=== PATIENT | female | born 1935 | race Caucasian/White ===

== ENCOUNTER 2016-05-02 18:52 | Inpatient (IN) | payer OTHER ==
--- NOTE | 2016-05-02 19:45 | PDOC ---
History of Present Illness - General Chief Complaint: Lightheaded Stated Complaint: LIGHTHEADED/ABD PAIN/SUGAR PROBLEM Time Seen by Provider: 05/02/16 19:12 Past History - Past Medical History Allergies/Adverse Reactions: Allergies Allergy/AdvReac Type Severity Reaction Status Date / Time No Known Allergies Allergy Verified 05/02/16 19:02 Home Medications: Ambulatory Orders Aspirin [Aspirin EC] 81 mg PO DAILY 02/02/16 Benazepril-Hctz 20-25 mg Tab 20 - 25 mg PO DAILY 02/02/16 Glipizide 10 mg PO BID 02/02/16 Lovastatin [Altoprev] 40 mg PO DAILY 02/02/16 Novolin N Vial - 21 units BID 02/02/16 Metformin HCl [Glucophage -] 1,000 mg PO BID@0700,1630 tablet 02/05/16 Cardiac Disorders: Yes Diabetes: Yes (iddm) HTN: Yes Hypercholesterolemia: Yes - Immunization History Immunization Up to Date: Yes - Psycho/Social/Smoking Cessation Hx Anxiety: No Suicidal Ideation: No Smoking History: Never smoked Have you smoked in the past 12 months: No Information on smoking cessation initiated: No Hx Alcohol Use: No Drug/Substance Use Hx: No Substance Use Type: None Hx Substance Use Treatment: No *Physical Exam - Vital Signs Last Vital Signs Temp Pulse Resp BP Pulse Ox 98.4 F 40 L 20 124/46 99 05/02/16 19:02 05/02/16 19:02 05/02/16 19:02 05/02/16 19:02 05/02/16 19:02 ED Treatment Course - LABORATORY CBC & Chemistry Diagram: 05/02/16 19:40 05/02/16 19:40 - RADIOLOGY Radiology Studies Ordered: Category Date Time Status CHEST X-RAY PORTABLE* [RAD] Stat Radiology 05/02/16 19:33 Ordered Medical Decision Making - Medical Decision Making 05/02/16 19:45 Pt has known bradycardia episodes, last time, she syncopized in Jan 2016; pt is A+Ox3 and her sons are at the bedside. Pt is refusing pacemaker placement and states that she refused pacemaker in the past as she is afraid. Pt's research scholar is Dr. Gracia. Pt states that she felt fine until late this afternoon when she developed abdominal pain and dizziness. 05/02/16 20:13 I have paged pt's research scholar, as she is unwilling to have a pacemaker placed and he has been managing her. I have also ordered that external pacer pads be placed on the patient if she decompensates. 05/02/16 20:44 CBC is normal; CXR shows cardiomegaly; chem is pending. Dr. Christian is automobile accessories salesperson and is aware of the patient. He is requesting that we admit the patient to the ICU with external pacemaker pads on. 05/03/16 01:03 Pt remains in the ER as there are no ICU beds. She remains with a HR of 35; external pacer pads are on in case pt decompensates. She is alert and awake and comfortable in the ER. Pt has been under a great deal of stress over the past 4 months with the unexpected of her daughter who has been admitted at another hospital for depression. 05/03/16 02:47 I called the ICU doctor to come and evaluate the patient and he is telling me that there is an empty bed in the ICU and that I should send the patient up. *DC/Admit/Observation/Transfer Diagnosis at time of Disposition: Bradycardia, AV dissociation - Discharge Dispostion Admit: Yes - Referrals Addendum entered and electronically signed by Anay Gilbert SCRIBE 05/03/16 04:48: Physical Exam Vital Sings: Vital Signs Temperature 98.4 F 05/02/16 19:02 Pulse Rate 38 L 05/03/16 03:22 Respiratory Rate 23 05/03/16 03:22 Blood Pressure 101/46 05/03/16 03:22 O2 Sat by Pulse Oximetry (%) 97 05/03/16 03:22 GENERAL: The patient is awake, alert, and fully oriented, in no acute distress. HEAD: Normal with no signs of trauma. EYES: Pupils equal, round and reactive to light, extraocular movements intact, sclera anicteric, conjunctiva clear with no pallor. ENT: Ears normal, nares patent, oropharynx clear without exudates. Moist mucous membranes. NECK: Normal range of motion, supple without lymphadenopathy, JVD, or masses. LUNGS: Breath sounds equal, clear to auscultation bilaterally. No wheeze/ crackles. HEART: +Bradycardic. Normal S1 and S2 without murmur or rub. ABDOMEN: Soft/nontender/nondistended. BS wnl. No guarding or rebound. No palpable masses. No hepatosplenomegaly. EXTREMITIES: +Swollen legs bilaterally, but no pitting edema. Normal range of motion. No clubbing or cyanosis. No cords, erythema, or tenderness. NEUROLOGICAL: Cranial nerves II through XII grossly intact. Normal speech, normal gait. PSYCH: Normal mood, normal affect. SKIN: Warm, Dry, normal turgor, no rashes or lesions noted. Labs: CBC, BMP 05/02/16 19:40 05/02/16 19:40 Addendum entered and electronically signed by Anay Gilbert SCRIBE 05/03/16 04:49: Departure/Admission/Transfer - DischargeDeparture ED Status: Left Department Discharge Diagnosis: Bradycardia, AV dissociation - Transfer to Another Facility Comment:: 05/03/16 04:49 Documentation prepared by Anay Gilbert, acting as certified medical coder for Lori Hays MD. Addendum entered and electronically signed by Anay Gilbert SCRIBE 05/03/16 06:11: History of Present Illness - General Chief Complaint: Lightheaded Stated Complaint: LIGHTHEADED/ABD PAIN/SUGAR PROBLEM Time Seen by Provider: 05/02/16 19:12 History Source: Patient, Family Exam Limitations: No Limitations - History of Present Illness Initial Comments: 05/03/16 06:11 The patient is an 80-year-old female with a significant past medical history of insulin dependent diabetes mellitus, hypertension, hypercholesterolemia, who presents to the emergency department with abdominal pain and dizziness that began late this afternoon. The patient describes the pain as an 8 out of 10. The patient has discussed with her research scholar Dr. Gracia is aware she needs a pacemaker, but is unwilling to have one in place. Allergies: NKDA PCP: Dr. Buzz Yo [address] Reporter: Dr. Vinny Gracia Addendum entered and electronically signed by Anay Gilbert SCRIBE 05/03/16 06:17: Progress Note - Progress Note Progress Note: GENERAL/CONSTITUTIONAL: No fever or chills. No weakness. HEAD, EYES, EARS, NOSE AND THROAT: No change in vision. No ear pain or discharge. No sore throat. CARDIOVASCULAR: No chest pain or shortness of breath. RESPIRATORY: No cough, wheezing, or hemoptysis. GASTROINTESTINAL: +Abdominal pain. No nausea, vomiting, diarrhea or constipation. GENITOURINARY: No dysuria, frequency, or change in urination. MUSCULOSKELETAL: No joint or muscle swelling or pain. No neck or back pain. SKIN: No rash NEUROLOGIC: No headache, vertigo, loss of consciousness, or change in strength/ sensation. ENDOCRINE: No increased thirst. No abnormal weight change. HEMATOLOGIC/LYMPHATIC: No anemia, easy bleeding, or history of blood clots. ALLERGIC/IMMUNOLOGIC: No hives or skin allergy.
[2016-05-02] MEDS ORDERED: ATROPINE SO4 0.4 MG/1 ML VIAL IVPUSH ONE (19:48)
[2016-05-02] MEDS ORDERED: ATROPINE SULFATE 1 MG/10 ML DISP.SYRIN ONE (19:51)
[2016-05-02 20:13] LABS: BASOPHIL 0.9 % (0-2.0); MCH 29.2 pg (25.7-33.7); MCHC 32.5 g/dl (32.0-36.0); MEAN CELL VOLUME 89.8 fl (80-96); MEAN PLT VOLUME 10.2 fl (7.5-11.1); PLATELET COUNT 139 K/MM3 (134-434); RDW 13.3 % (11.6-15.6); WHITE BLOOD COUNT 11.9 K/mm3 (4.0-10.0)
[2016-05-02 20:37] LABS: ALBUMIN 3.9 g/dl (3.4-5.0); ANION GAP 10 (8-16); BILIRUBIN,TOTAL 0.2 mg/dL (0.2-1.0); CALCIUM 9.7 mg/dL (8.5-10.1); CO2 25 mmol/L (21-32); CREATININE 1.3 mg/dL (0.55-1.02); GLUCOSE,RANDOM 145 mg/dL (74-106); SGOT/AST 112 U/L (15-37); SGPT/ALT 131 U/L (12-78); TOT PROT 7.3 g/dl (6.4-8.2)
[2016-05-02 20:39] LABS: ALK PHOS 99 U/L (45-117); TROPONIN I < 0.02 ng/ml (0.00-0.05)
[2016-05-02 20:56] LABS: INR 0.95 (0.82-1.09); PROTHROMBIN TIME (PATIENT) 10.4 SEC (9.98-11.88)
--- NOTE | 2016-05-02 21:34 | CONSULT ---
Consult Consult Specialty:: Cardiologyy for Sammiareli - History of Present Illness Chief Complaint: abdominal pain and dizziness History of Present Illness: Pt has known bradycardia episodes, last time, she syncopized in Jan 2016; pt is A+Ox3 and her sons are at the bedside. Pt is refusing pacemaker placement and states that she refused pacemaker in the past as she is afraid. Pt's overhead irrigator is Dr. Gracia. Pt states that she felt fine until late this afternoon when she developed abdominal pain and dizziness. chronic RBBB multiple syncopies - History Source History Provided By: Patient, Medical Record - Past Medical History Cardio/Vascular: Yes: HTN, Hyperlipdemia Psych: Yes: Depression Endocrine: Yes: Diabetes Mellitus - Past Surgical History Past Surgical History: Yes: Hysterectomy - Alcohol/Substance Use Hx Alcohol Use: No - Smoking History Smoking history: Never smoked Have you smoked in the past 12 months: No - Social History Usual Living Arrangement: With Child History of Recent Travel: No Home Medications - Allergies Allergies/Adverse Reactions: Allergies Allergy/AdvReac Type Severity Reaction Status Date / Time No Known Allergies Allergy Verified 05/02/16 19:02 - Home Medications Home Medications: Ambulatory Orders Aspirin [Aspirin EC] 81 mg PO DAILY 02/02/16 Benazepril-Hctz 20-25 mg Tab 20 - 25 mg PO DAILY 02/02/16 Glipizide 10 mg PO BID 02/02/16 Lovastatin [Altoprev] 40 mg PO DAILY 02/02/16 Novolin N Vial - 21 units BID 02/02/16 Metformin HCl [Glucophage -] 1,000 mg PO BID@0700,1630 tablet 02/05/16 Review of Systems - Review of Systems Constitutional: reports: Malaise Eyes: reports: No Symptoms HENT: reports: No Symptoms Neck: reports: No Symptoms Cardiovascular: reports: No Symptoms Gastrointestinal: reports: Nausea, Vomiting Genitourinary: reports: No Symptoms Breasts: reports: No Symptoms Reported Musculoskeletal: reports: No Symptoms Integumentary: reports: No Symptoms Neurological: reports: No Symptoms Endocrine: reports: No Symptoms Hematology/Lymphatic: reports: No Symptoms Psychiatric: reports: No Symptoms Vital Signs: Vital Signs Temperature 98.4 F 05/02/16 19:02 Pulse Rate 39 L 05/02/16 20:58 Respiratory Rate 20 05/02/16 20:58 Blood Pressure 108/45 01/06/17 20:58 O2 Sat by Pulse Oximetry (%) 96 05/02/16 20:58 Constitutional: Yes: Well Nourished, No Distress, Calm Eyes: Yes: WNL, Conjunctiva Clear, EOM Intact HENT: Yes: WNL, Atraumatic, Normocephalic Neck: Yes: WNL, Supple, Trachea Midline Respiratory: Yes: WNL, Regular, CTA Bilaterally Gastrointestinal: Yes: WNL, Normal Bowel Sounds Renal/: Yes: WNL Cardiovascular: Yes: WNL, Regular Rate and Rhythm Musculoskeletal: Yes: WNL Extremities: Yes: WNL Integumentary: Yes: WNL Neurological: Yes: WNL, Alert, Oriented ...Motor Strength: WNL Psychiatric: Yes: WNL, Alert, Oriented - Other Data Labs, Other Data: INR, PTT INR 0.95 (0.82-1.09) 05/02/16 19:40 Laboratory Tests 05/02/16 05/02/16 05/02/16 19:40 19:40 19:40 WBC 11.9 H RBC 4.17 Hgb 12.2 Hct 37.5 MCV 89.8 MCHC 32.5 RDW 13.3 Plt Count 139 D MPV 10.2 Neutrophils % 65.0 Lymphocytes % 21.6 D Monocytes % 11.5 H Eosinophils % 1.0 Basophils % 0.9 Platelet Estimate Platelet Comment INR 0.95 Sodium 138 Potassium 4.8 Chloride 103 Carbon Dioxide 25 Anion Gap 10 BUN 38 H Creatinine 1.3 H D Creat Clearance w eGFR 39.31 POC Glucometer Random Glucose 145 H D Calcium 9.7 Total Bilirubin 0.2 D AST 112 H D ALT 131 H D Alkaline Phosphatase 99 D Creatine Kinase 52 Troponin I < 0.02 Total Protein 7.3 Albumin 3.9 05/03/16 05/03/16 05/03/16 05:38 06:00 06:00 WBC 19.0 H D RBC 4.38 Hgb 12.7 Hct 39.7 MCV 90.6 MCHC 32.1 RDW 13.7 Plt Count Not Reportable MPV 10.8 Neutrophils % Lymphocytes % Monocytes % Eosinophils % Basophils % Platelet Estimate Slt decreased Platelet Comment Mod plt clumping INR Sodium 136 Potassium 4.9 Chloride 103 Carbon Dioxide 19 L D Anion Gap 14 BUN 46 H D Creatinine 1.9 H D Creat Clearance w eGFR POC Glucometer > 400 Random Glucose 296 H D Calcium 10.0 Total Bilirubin AST ALT Alkaline Phosphatase Creatine Kinase 47 Troponin I 0.05 Total Protein Albumin Imaging - Results Chest X-ray: Image Reviewed (cm no i/e) EKG: Image Reviewed (sr av dissociation vr 35) Problem List - Problems (1) 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 - OTHER SPECIFIED CONDUCTION DISORDERS (2) Bradycardia Code(s): R00.1 - BRADYCARDIA, UNSPECIFIED (3) Abnormal EKG Code(s): R94.31 - ABNORMAL ELECTROCARDIOGRAM [ECG] [EKG] (4) Aortic stenosis Code(s): I35.0 - NONRHEUMATIC AORTIC (VALVE) STENOSIS (5) Carotid stenosis, left Code(s): I65.22 - OCCLUSION AND STENOSIS OF LEFT CAROTID ARTERY (6) Diabetes Code(s): E11.9 - TYPE 2 DIABETES MELLITUS WITHOUT COMPLICATIONS Qualifiers: Diabetes mellitus type: type 2 Diabetes mellitus complication status: without complication Diabetes mellitus assisted insulin use: without emt intermediate use Qualified Code(s): E11.9 - Type 2 diabetes mellitus without complications (7) Hypertension Code(s): I10 - ESSENTIAL (PRIMARY) HYPERTENSION Qualifiers: Hypertension type: essential hypertension Qualified Code(s): I10 - Essential (primary) hypertension (8) Prerenal azotemia Code(s): R79.89 - OTHER SPECIFIED ABNORMAL FINDINGS OF BLOOD CHEMISTRY (9) Syncope Code(s): R55 - SYNCOPE AND COLLAPSE Assessment/Plan 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 Will transfer patient to [facility] CCU for PPM d/w2 Itz Steward who is accepting MD at [facility] cont external PPM for now BP stable cc time 75 min
[2016-05-03] MEDS ORDERED: ATROPINE SULFATE 1 MG/10 ML DISP.SYRIN IVPUSH ONE (02:42)
[2016-05-03] MEDS ORDERED: ATROPINE SULFATE 1 MG/10 ML DISP.SYRIN ONE (02:44)
[2016-05-03] MEDS ORDERED: ONDANSETRON 4 MG/2 ML VIAL IVPB PRN (03:05)
--- NOTE | 2016-05-03 03:14 | HP ---
[id number] year old female, who presented to the emergency department with nausea, abdominal pain and dizziness.The patient has known bradycardia episodes with associated syncope and was previously admitted in Jan 2016 for evaluation at which time pacemaker was recommended, however patient refused. Patient states that she refused due to fear of the procedure. She states she has been under significant stress over the past 4 months with the unexpected of her daughter.The patient now approves of pacemaker placement. She has had limited activities since the onset and has not been able to drive. She reports dizziness exacerbated by positional changes but denies any recent syncopal episodes. Since prior admission patient has had no falls. Patient denies chest pain and headache. Patient denies fever, chills, nausea, vomit, diarrhea and constipation. Patient denies dysuria, frequency, urgency and hematuria. PMHx: IDDM, HTN and hypercholesterolemia PShx: hysterectomy in 1981, Exploratory laparotomy? Social Hx: Denies smoking, alcohol or drug use Family Hx: Noncontributory ER course was notable for: (1) CT abdomen reveals distended gallbladder with multiple stones (2) CXR- Mild cardiomegaly without evidence of acute lung disease (3) Atropine given (4) Cardiology consult Recent Travel: None Allergies No Known Allergies Allergy (Verified 05/02/16 19:02) HOME MEDICATIONS: Medication Instructions Recorded Aspirin [Aspirin EC] 81 mg PO DAILY 02/02/16 Benazepril-Hctz 20-25 mg Tab 20 - 25 mg PO DAILY 02/02/16 Glipizide 10 mg PO BID 02/02/16 Lovastatin [Altoprev] 40 mg PO DAILY 02/02/16 Novolin N Vial - 21 units BID 02/02/16 Metformin HCl [Glucophage -] 1,000 mg PO BID@0700,1630 tablet 02/05/16 REVIEW OF SYSTEMS CONSTITUTIONAL: Absent: fever, chills, diaphoresis, generalized weakness, malaise, loss of appetite, weight change HEENT: Absent: rhinorrhea, nasal congestion, throat pain, throat swelling, difficulty swallowing, mouth swelling, ear pain, eye pain, visual changes CARDIOVASCULAR: +Syncope. Absent: chest pain, palpitations, irregular heart rate, lightheadedness, peripheral edema RESPIRATORY: Absent: cough, shortness of breath, dyspnea with exertion, orthopnea, wheezing, stridor, hemoptysis GASTROINTESTINAL: +Abdominal pain. + Nausea Absent: abdominal distension, vomiting, diarrhea, constipation, melena, hematochezia GENITOURINARY: Absent: dysuria, frequency, urgency, hesitancy, hematuria, flank pain, genital pain MUSCULOSKELETAL: Absent: myalgia, arthralgia, joint swelling, back pain, neck pain SKIN: Absent: rash, itching, pallor HEMATOLOGIC/IMMUNOLOGIC: Absent: easy bleeding, easy bruising, lymphadenopathy, frequent infections ENDOCRINE: Absent: unexplained weight gain, unexplained weight loss, heat intolerance, cold intolerance NEUROLOGIC: + dizziness Absent: headache, focal weakness or paresthesias, unsteady gait, seizure, mental status changes, bladder or bowel incontinence PSYCHIATRIC: Absent: anxiety, depression, suicidal or homicidal ideation, hallucinations. PHYSICAL EXAMINATION Vital Signs - 24 hr 05/02/16 05/03/16 05/03/16 22:24 02:50 02:55 Pulse Rate [ 36 L 34 L Radial] Respiratory 20 18 Rate Blood Pressure 119/43 109/49 [Right Arm] O2 Sat by Pulse 97 96 96 Oximetry (%) GENERAL: Awake, alert, and fully oriented, in no acute distress. + Talking in full sentences. + Lethargic. HEAD: Normal with no signs of trauma. EYES: Pupils equal, round and reactive to light, extraocular movements intact, sclera anicteric, conjunctiva clear. No lid lag. EARS, NOSE, THROAT: Ears normal, nares patent, oropharynx clear without exudates. Moist mucous membranes. NECK: Normal range of motion, supple without lymphadenopathy, JVD, or masses. LUNGS: Breath sounds equal, clear to auscultation bilaterally. No wheezes, and no crackles. No accessory muscle use. HEART: + Bradycardic without murmur, rub or gallop. ABDOMEN: Soft, nontender, not distended, normoactive bowel sounds, no guarding, no rebound, no masses. No hepatomegaly or splenomegaly. MUSCULOSKELETAL: Normal range of motion at all joints. No bony deformities or tenderness. No CVA tenderness. UPPER EXTREMITIES: 2+ pulses, warm, well-perfused. No cyanosis. No clubbing. Cap refill <2 seconds. No peripheral edema. LOWER EXTREMITIES: 2+ pulses, warm, well-perfused. No calf tenderness. No peripheral edema. NEUROLOGICAL: Cranial nerves II-XII intact. Normal speech. Gait not observed. PSYCHIATRIC: Cooperative. Good eye contact. Appropriate mood and affect. SKIN: Warm, dry, normal turgor, no rashes or lesions noted. IMAGING: CT Abdomen Over distended gallbladder with multiple small stones. No acute cholecystitis. Chest Xray Mild cardiomegaly without evidence of acute lung disease. ASSESSMENT/PLAN: Chart Reviewed. The patient is a 80 yo F who presents with sons at bedside with dizziness. Admitted to ICU for close monitoring. 1.) Dizziness -Most likely secondary to bradycardia. -Patient agrees to pacemaker placement. -Consult cardiology, Dr. Gracia. -Continue external pacer. 2.) Abdominal pain - Over distended gallbladder with multiple small stones. No acute cholecystitis. - Continue to monitor 3.) HTN - Continue benazepril- Hctz - Hold Statin 4.) Diabetes II - Hold oral medications - RISS 5.) DVT Ppx Heparin 5000 units SQ, Q8 hrs - Fall Risk precaution CCTime: 45 mins Documentation prepared by Sarah Davies, acting as medical aides teacher for Melissa Ricardo MD. <Melissa Ricardo - Last Filed: 05/30/16 23:57> Problem List - Problem (1) Diabetes Code(s): E11.9 - TYPE 2 DIABETES MELLITUS WITHOUT COMPLICATIONS Qualifiers: Diabetes mellitus type: type 2 Diabetes mellitus complication status: without complication Diabetes mellitus vermin exterminator insulin use: without vermin exterminator use Qualified Code(s): E11.9 - Type 2 diabetes mellitus without complications (2) Hypertension Code(s): I10 - ESSENTIAL (PRIMARY) HYPERTENSION Qualifiers: Hypertension type: essential hypertension Qualified Code(s): I10 - Essential (primary) hypertension (3) Dizziness Code(s): R42 - DIZZINESS AND GIDDINESS (4) Abdominal pain Code(s): R10.9 - UNSPECIFIED ABDOMINAL PAIN Visit type - Emergency Visit Emergency Visit: Yes ED Registration Date: 05/03/16 Care time: The patient presented to the Emergency Department on the above date and was hospitalized for further evaluation of their emergent condition. - New Patient This patient is new to me today: Yes Date on this admission: 05/30/16 - Critical Care Critical Care patient: No
--- NOTE | 2016-05-03 03:21 | CONSULT ---
Consult Consult Specialty:: Pulm/CCM Reason for Consultation:: bradycardia - History of Present Illness Chief Complaint: dizzyness, abd pain History of Present Illness: This is a 82 yo woman with HTN, IDDM, HLD with known AV cruz dissociation who presented to the ED dizziness and abdominal pain. She was admitted in 02/09 for syncope r/t bradycardia and was recommended to have PPM which she refused. On arrival to the ED she was AOx3, hemodynamically stable. Cardiology was consulted. External pacer pads placed. She also received a CTAP given her abdominal pain, no evidence of acute pathology but it was notable for a distended gallbladder w/ multiple stones but w/o evidence of acute cholecystitis. Labs significant for mild transaminitis. She was admitted to ICU for persistent bradycardia. Previous ECHO: EF 75%. On arrival to the ICU patient awake, alert. HR 33, BP:100/46. Sat 96% on NC 2 lpm. Denies: SOB, CP, sick contacts - History Source History Provided By: Patient, Medical Record Limitations to Obtaining History: No Limitations - Past Medical History Cardio/Vascular: Yes: HTN, Murmur Psych: Yes: Depression Endocrine: Yes: Diabetes Mellitus - Past Surgical History Past Surgical History: Yes: Hysterectomy - Alcohol/Substance Use Hx Alcohol Use: No - Smoking History Smoking history: Never smoked Have you smoked in the past 12 months: No - Social History Usual Living Arrangement: With Child History of Recent Travel: No Home Medications - Allergies Allergies/Adverse Reactions: Allergies Allergy/AdvReac Type Severity Reaction Status Date / Time No Known Allergies Allergy Verified 05/02/16 19:02 - Home Medications Home Medications: Ambulatory Orders Aspirin [Aspirin EC] 81 mg PO DAILY 02/02/16 Benazepril-Hctz 20-25 mg Tab 20 - 25 mg PO DAILY 02/02/16 Glipizide 10 mg PO BID 02/02/16 Lovastatin [Altoprev] 40 mg PO DAILY 02/02/16 Novolin N Vial - 21 units BID 02/02/16 Metformin HCl [Glucophage -] 1,000 mg PO BID@0700,1630 tablet 02/05/16 Review of Systems - Review of Systems Cardiovascular: reports: Edema Gastrointestinal: reports: Nausea Neurological: reports: Dizziness Physical Exam Vital Signs: Vital Signs Temperature 98.4 F 05/02/16 19:02 Pulse Rate 34 L 05/03/16 02:50 Respiratory Rate 18 05/03/16 02:50 Blood Pressure 109/49 05/03/16 02:50 O2 Sat by Pulse Oximetry (%) 96 05/03/16 02:55 Current Medications Aspirin (Ecotrin -) 81 mg PO DAILY [facility] Chlorhexidine Gluconate (Hibiclens For Decolonization -) 1 applic TP HS ADAM Heparin Sodium (Porcine) (Heparin -) 5,000 unit SQ BID ADAM Mupirocin (Bactroban Ointment (For Decolonization) -) 1 applic NS BID [facility] Stop: 05/08/16 09:59 Non-Formulary Medication (Benazepril-Hctz 20-25 Mg Tab) 20 - 25 mg PO DAILY [facility] Ondansetron HCl (Zofran Injection) 4 mg IVPB Q6H PRN PRN Reason: NAUSEA Constitutional: Yes: Well Nourished, No Distress Cardiovascular: Yes: Bradycardia, Murmur, S1, S2 Respiratory: Yes: CTA Bilaterally Gastrointestinal: Yes: Normal Bowel Sounds, Soft, Distention Edema: LLE: 2+, RLE: 2+ Neurological: Yes: Alert, Oriented ...Motor Strength: WNL Psychiatric: Yes: Alert, Oriented Labs: CBCD WBC 11.9 K/mm3 (4.0-10.0) H 05/02/16 19:40 RBC 4.17 M/mm3 (3.60-5.2) 05/02/16 19:40 Hgb 12.2 GM/dL (10.7-15.3) 05/02/16 19:40 Hct 37.5 % (32.4-45.2) 05/02/16 19:40 MCV 89.8 fl (80-96) 05/02/16 19:40 MCHC 32.5 g/dl (32.0-36.0) 05/02/16 19:40 RDW 13.3 % (11.6-15.6) 05/02/16 19:40 Plt Count 139 K/MM3 (134-434) D 05/02/16 19:40 MPV 10.2 fl (7.5-11.1) 05/02/16 19:40 CMP Sodium 138 mmol/L (136-145) 05/02/16 19:40 Potassium 4.8 mmol/L (3.5-5.1) 05/02/16 19:40 Chloride 103 mmol/L (98-107) 05/02/16 19:40 Carbon Dioxide 25 mmol/L (21-32) 05/02/16 19:40 Anion Gap 10 (8-16) 05/02/16 19:40 BUN 38 mg/dL (7-18) H 05/02/16 19:40 Creatinine 1.3 mg/dL (0.55-1.02) H D 05/02/16 19:40 Creat Clearance w eGFR 39.31 (>60) 05/02/16 19:40 Random Glucose 145 mg/dL (74-106) H D 05/02/16 19:40 Calcium 9.7 mg/dL (8.5-10.1) 05/02/16 19:40 Total Bilirubin 0.2 mg/dL (0.2-1.0) D 05/02/16 19:40 AST 112 U/L (15-37) H D 05/02/16 19:40 ALT 131 U/L (12-78) H D 05/02/16 19:40 Alkaline Phosphatase 99 U/L (45-117) D 05/02/16 19:40 Total Protein 7.3 g/dl (6.4-8.2) 05/02/16 19:40 Albumin 3.9 g/dl (3.4-5.0) 05/02/16 19:40 CARDIAC ENZYMES Creatine Kinase 52 IU/L (26-192) 05/02/16 19:40 Troponin I < 0.02 ng/ml (0.00-0.05) 05/02/16 19:40 Imaging - Results Chest X-ray: Report Reviewed (cardiomegaly), Image Reviewed Cat Scan: Report Reviewed (no acute pathology), Image Reviewed EKG: Report Reviewed (3rd degree HB), Image Reviewed Assessment/Plan A/P: 82 yo woman with AV cruz dissociation p/w stable bradycardia, mild transaminitis and ESTEVAN (SCr: 1->1.3) -O2 for sat >92% -trend troponins -trend LFTS -Cardiology aware -EKG -will likely need PPM -will trial DPA gtt for chronotropic support -transcutaneous pacer pads for acute decompensation -trend SCr, likely prerenal 2/2 decreased forward flow -cont ASA -hold statin given transaminitis -fingersticks, ISS for glucose control -IV fluids -urine lytes -hep sq Boerem ACNP Pulm/CCM CCT: 35m
[2016-05-03 03:36] VITALS: BMI 32.7
[2016-05-03] MEDS ORDERED: DOPAMINE 400 MG/D5W - 250 ML IVPB SCH (04:15)
[2016-05-03] MEDS ORDERED: PT OWN MED DRAWER 7, Y5N ONE (05:06)
[2016-05-03] MEDS ORDERED: INSULIN REGULAR HUMAN 100 UNITS/ML *VIAL IVPUSH ONE (05:41)
[2016-05-03] MEDS ORDERED: ONDANSETRON 4 MG/2 ML VIAL IVPUSH ONE (05:43)
[2016-05-03] MEDS ORDERED: INSULIN SLIDING SCALE (NOVOLOG) 1 VIAL SQ SCH (07:00)
[2016-05-03 07:41] LABS: MCH 29.1 pg (25.7-33.7); MCHC 32.1 g/dl (32.0-36.0); MEAN CELL VOLUME 90.6 fl (80-96); MEAN PLT VOLUME 10.8 fl (7.5-11.1); RDW 13.7 % (11.6-15.6)
[2016-05-03 08:20] LABS: CREATININE 1.9 mg/dL (0.55-1.02); TROPONIN I 0.05 ng/ml (0.00-0.05)
[2016-05-03 09:08] LABS: PLATELET COMMENT2 MOD PLT CLUMPING; PLATELET COMMENT3 FEW LARGE PLTS; PLATELET ESTIMATE SLT DECREASED (NORMAL)
[2016-05-03] MEDS ORDERED: DEXTROSE 5%-0.45% SALINE 1,000 ML IV SCH (10:00)
[2016-05-03] MEDS ORDERED: HEPARIN NA (PORCINE) 5,000 UNITS/ML 1ML VIAL SQ SCH (10:00)
[2016-05-03] MEDS ORDERED: BENAZEPRIL HCTZ PO SCH (10:00)
[2016-05-03] MEDS ORDERED: MUPIROCIN 2% TOPICAL OINTMENT FOR DECOLONIZATION NS SCH (10:00)
[2016-05-03] MEDS ORDERED: ASPIRIN COATED 81 MG TABLET.EC PO SCH (10:00)
--- NOTE | 2016-05-03 10:37 | PN ---
Progress Note, Physician History of Present Illness: Pt has known bradycardia episodes, last time, she syncopized in Jan 2016; pt is A+Ox3 and her sons are at the bedside. Pt is refusing pacemaker placement and states that she refused pacemaker in the past as she is afraid. 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 Pt states that she felt fine until late this afternoon when she developed abdominal pain and dizziness. chronic RBBB multiple syncopies - Current Medication List Current Medications: Active Medications Aspirin (Ecotrin -) 81 mg PO DAILY ADAM Chlorhexidine Gluconate (Hibiclens For Decolonization -) 1 applic TP HS ADAM Heparin Sodium (Porcine) (Heparin -) 5,000 unit SQ BID ADAM Dopamine HCl/Dextrose (Dopamine 400 Mg/D5w -) 250 mls @ 14.25 mls/hr IVPB TITR ADAM; 5 MCG/KG/MIN PRN Reason: Protocol Dextrose/Sodium Chloride (D5-1/2ns -) 1,000 mls @ 75 mls/hr IV ASDIR ADAM Insulin Aspart (Novolog Vial Sliding Scale -) 1 vial SQ ACHS ADAM PRN Reason: Protocol Mupirocin (Bactroban Ointment (For Decolonization) -) 1 applic NS BID ADAM Stop: 05/08/16 09:59 Patient's Own Medication (Non- Formulary) ( Benazepril-Hctz 20- 25 Mg Tab) 20 - 25 mg PO DAILY ADAM Ondansetron HCl (Zofran Injection) 4 mg IVPB Q6H PRN PRN Reason: NAUSEA - Objective Vital Signs: Vital Signs Temperature 98.4 F 05/02/16 19:02 Pulse Rate 57 L 05/03/16 05:05 Respiratory Rate 20 05/03/16 05:05 Blood Pressure 92/38 05/03/16 05:05 O2 Sat by Pulse Oximetry (%) 97 05/03/16 03:22 Eyes: Yes: WNL, Conjunctiva Clear, EOM Intact HENT: Yes: WNL, Atraumatic, Normocephalic Neck: Yes: WNL, Supple, Trachea Midline Cardiovascular: Yes: WNL, Regular Rate and Rhythm Respiratory: Yes: WNL, Regular, CTA Bilaterally Gastrointestinal: Yes: WNL, Normal Bowel Sounds Genitourinary: Yes: WNL Musculoskeletal: Yes: WNL Extremities: Yes: WNL Edema: No Integumentary: Yes: WNL Neurological: Yes: WNL, Alert, Oriented ...Motor Strength: WNL Psychiatric: Yes: WNL Labs: CBC, BMP 05/03/16 06:00 05/03/16 06:00 INR, PTT INR 0.95 (0.82-1.09) 05/02/16 19:40 Problem List - Problems (1) 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 - OTHER SPECIFIED CONDUCTION DISORDERS (2) Bradycardia Code(s): R00.1 - BRADYCARDIA, UNSPECIFIED (3) Abnormal EKG Code(s): R94.31 - ABNORMAL ELECTROCARDIOGRAM [ECG] [EKG] (4) Aortic stenosis Code(s): I35.0 - NONRHEUMATIC AORTIC (VALVE) STENOSIS (5) Carotid stenosis, left Code(s): I65.22 - OCCLUSION AND STENOSIS OF LEFT CAROTID ARTERY (6) Diabetes Code(s): E11.9 - TYPE 2 DIABETES MELLITUS WITHOUT COMPLICATIONS Qualifiers: Diabetes mellitus type: type 2 Diabetes mellitus complication status: without complication Diabetes mellitus exterminator helper insulin use: without nursing home use Qualified Code(s): E11.9 - Type 2 diabetes mellitus without complications (7) Hypertension Code(s): I10 - ESSENTIAL (PRIMARY) HYPERTENSION Qualifiers: Hypertension type: essential hypertension Qualified Code(s): I10 - Essential (primary) hypertension (8) Prerenal azotemia Code(s): R79.89 - OTHER SPECIFIED ABNORMAL FINDINGS OF BLOOD CHEMISTRY (9) Syncope Code(s): R55 - SYNCOPE AND COLLAPSE Assessment/Plan 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 awaiting transfer to [facility] CCU for PPM d/w2 Itz Steward who is accepting MD at [facility] cont external PPM for now BP stable cc time 35 min
[2016-05-03 13:19] VITALS: BP 151/115; PULSE 20
--- NOTE | 2016-05-03 13:19 | PN ---
Physical Exam: SUBJECTIVE: Patient seen and examined Patient is in ICU, came to see the patient , found the HR of 29. Patient is c/o being nauseas. external pacer at bedside. OBJECTIVE: Vital Signs Temperature 98.1 F 05/03/16 09:00 Pulse Rate 20 L 05/03/16 13:03 Respiratory Rate 16 05/03/16 13:03 Blood Pressure 151/115 05/03/16 13:03 O2 Sat by Pulse Oximetry (%) 97 05/03/16 09:00 GENERAL: The patient is awake, alert, and fully oriented, in moderate distress. HEAD: Normal with no signs of trauma. EYES: PERRL, extraocular movements intact, sclera anicteric, conjunctiva clear. ENT: Ears normal, nares patent, oropharynx clear without exudates, moist mucous membranes. NECK: Trachea midline, full range of motion, supple. LUNGS: Breath sounds equal, clear to auscultation bilaterally, no wheezes, no crackles, no accessory muscle use. HEART: Bradycardic rate of 29, external pacer at bedside, S1, S2 positive ABDOMEN: Soft, nontender, nondistended, normoactive bowel sounds, no guarding, no rebound, no hepatosplenomegaly, no masses. EXTREMITIES: 2+ pulses, warm, well-perfused, no edema. NEUROLOGICAL: Cranial nerves II through XII grossly intact. Normal speech, gait not observed. PSYCH: Normal mood, normal affect. SKIN: Warm, dry, normal turgor, no rashes or lesions noted CBCD WBC 19.0 K/mm3 (4.0-10.0) H D 05/03/16 06:00 RBC 4.38 M/mm3 (3.60-5.2) 05/03/16 06:00 Hgb 12.7 GM/dL (10.7-15.3) 05/03/16 06:00 Hct 39.7 % (32.4-45.2) 05/03/16 06:00 MCV 90.6 fl (80-96) 05/03/16 06:00 MCHC 32.1 g/dl (32.0-36.0) 05/03/16 06:00 RDW 13.7 % (11.6-15.6) 05/03/16 06:00 Plt Count Not Reportable 05/03/16 06:00 MPV 10.8 fl (7.5-11.1) 05/03/16 06:00 CMP Sodium 136 mmol/L (136-145) 05/03/16 06:00 Potassium 4.9 mmol/L (3.5-5.1) 05/03/16 06:00 Chloride 103 mmol/L (98-107) 05/03/16 06:00 Carbon Dioxide 19 mmol/L (21-32) L D 05/03/16 06:00 Anion Gap 14 (8-16) 05/03/16 06:00 BUN 46 mg/dL (7-18) H D 05/03/16 06:00 Creatinine 1.9 mg/dL (0.55-1.02) H D 05/03/16 06:00 Creat Clearance w eGFR 39.31 (>60) 05/02/16 19:40 Random Glucose 296 mg/dL (74-106) H D 05/03/16 06:00 Calcium 10.0 mg/dL (8.5-10.1) 05/03/16 06:00 Total Bilirubin 0.2 mg/dL (0.2-1.0) D 05/02/16 19:40 AST 112 U/L (15-37) H D 05/02/16 19:40 ALT 131 U/L (12-78) H D 05/02/16 19:40 Alkaline Phosphatase 99 U/L (45-117) D 05/02/16 19:40 Total Protein 7.3 g/dl (6.4-8.2) 05/02/16 19:40 Albumin 3.9 g/dl (3.4-5.0) 05/02/16 19:40 CARDIAC ENZYMES Creatine Kinase 47 IU/L (26-192) 05/03/16 06:00 Troponin I 0.05 ng/ml (0.00-0.05) 05/03/16 06:00 Active Medications Generic Name Dose Route Start Last Admin Trade Name Freq PRN Reason Stop Dose Admin Aspirin 81 mg 05/03/16 10:00 05/03/16 12:43 Ecotrin - PO Not Given DAILY ADAM Chlorhexidine Gluconate 1 applic 05/03/16 22:00 Hibiclens For Decolonization - TP HS [facility] Heparin Sodium (Porcine) 5,000 unit 05/03/16 10:00 01/07/17 12:44 Heparin - SQ 5,000 unit BID ADAM Administration Dopamine HCl/Dextrose 250 mls @ 14.25 mls/hr 05/03/16 04:15 Dopamine 400 Mg/D5w - IVPB TITR ADAM Protocol 5 MCG/KG/MIN Dextrose/Sodium Chloride 1,000 mls @ 75 mls/hr 05/03/16 10:00 05/03/16 12:43 D5-1/2ns - IV 75 mls/hr ASDIR ADAM Administration Insulin Aspart 1 vial 05/03/16 07:00 Novolog Vial Sliding Scale - SQ ACHS [facility] Protocol Mupirocin 1 applic 05/03/16 10:00 05/03/16 12:47 Bactroban Ointment (For Decolonization) - NS 05/08/16 09:59 1 applic BID ADAM Administration Patient's Own 20 - 25 mg 05/03/16 10:00 05/03/16 12:42 Medication (Non- PO Not Given Formulary) ( DAILY ADAM Benazepril-Hctz 20- 25 Mg Tab) Ondansetron HCl 4 mg 05/03/16 03:05 Zofran Injection IVPB Q6H PRN NAUSEA Echo w/ normal LV and no sig . Carotid US shows moderate LICA stenosis CT Abdomen Over distended gallbladder with multiple small stones. No acute cholecystitis. Chest Xray Mild cardiomegaly without evidence of acute lung disease. ASSESSMENT/PLAN: This patient is a 80 yo F who presented to ED. for having dizziness with AV cruz dissociation p/w bradycardia with variable rates from 29-70's. Admitted to ICU for close monitoring. # Acute AV cruz dissociation with Bradycardis with variable rates ; Placed the patient on External pacer( Trancutaneous pacer pads) ; Patient is able to tolerate mA of 14 not higher than that and PPM of [address] Miranda also at bedside. Dopamine drip continue with current rate 15mcg/kg/min. Transport center called ICU to arrange the transfer. ;covering for Dr. Graica, arranged the patient to Transfer to [facility]. Placed a call to waiting for his call back. # Abdominal pain due to distended gallbladder with multiple small stones. No acute cholecystitis. continue to monitor # T2DM uncontrolled sliding scale with coverage # HTN will hold benazepril- Hctz since elevated creatinine DVT Ppx Heparin 5000 units SQ, Q8 hrs - Fall Risk precaution As per arrignacio, patient is being transferred to [facility]. Visit type - Emergency Visit Emergency Visit: Yes ED Registration Date: 05/03/16 Care time: The patient presented to the Emergency Department on the above date and was hospitalized for further evaluation of their emergent condition. - New Patient This patient is new to me today: Yes Date on this admission: 05/03/16 - Critical Care Critical Care patient: Yes Total Critical Care Time (in minutes): 35 Critical Care Statement: The care of this patient involved high complexity decision making to prevent further life threatening deterioration of the patient 's condition and/or to evalute & treat vital organ system(s) failure or risk of failure. - Discharge Referral Referred to [facility] Med P.C.: No
[2016-05-03 13:20] VITALS: TEMP 98.1
[2016-05-03] MEDS ORDERED: INSULIN (NOVOLOG) ASPART 100 UNITS/ML 10ML VIAL SQ ONE (16:00)
--- NOTE | 2016-05-03 19:04 | DS ---
Physical Exam: SUBJECTIVE: Patient seen and examined Patient in ICu , is being transferred by Dr. Tompkins to [facility]. OBJECTIVE: Vital Signs Period Temp Pulse Resp BP Sys/[place] Pulse Ox Last 24 Hr 98.1 F 20-57 16-23 92-169/38-115 97-97 PHYSICAL EXAM GENERAL: The patient is awake, alert, and fully oriented, in no acute distress. HEAD: Normal with no signs of trauma. EYES: PERRL, extraocular movements intact, sclera anicteric, conjunctiva clear. ENT: Ears normal, oropharynx clear without exudates, moist mucous membranes. NECK: Trachea midline, full range of motion, supple. LUNGS: Breath sounds equal, clear to auscultation bilaterally, no wheezes, no crackles, no accessory muscle use. HEART: severe bradycardia with external pacer in place , S1, S2 positive, no rub or gallop. ABDOMEN: Soft, nontender, nondistended, normoactive bowel sounds, no guarding, no rebound, no hepatosplenomegaly, no masses. EXTREMITIES: 2+ pulses, warm, well-perfused, no edema. NEUROLOGICAL: Cranial nerves II through XII grossly intact. Normal speech, gait not observed. PSYCH: Normal mood, normal affect. SKIN: Warm, dry, normal turgor, no rashes or lesions noted. LABS Laboratory Results - last 24 hr 05/03/16 05/03/16 05/03/16 05:38 06:00 06:00 WBC 19.0 H D RBC 4.38 Hgb 12.7 Hct 39.7 MCV 90.6 MCHC 32.1 RDW 13.7 Plt Count Not Reportable MPV 10.8 Platelet Estimate Slt decreased Platelet Comment Mod plt clumping Sodium 136 Potassium 4.9 Chloride 103 Carbon Dioxide 19 L D Anion Gap 14 BUN 46 H D Creatinine 1.9 H D Plasma Glucose POC Glucometer > 400 Random Glucose 296 H D Calcium 10.0 Creatine Kinase 47 Troponin I 0.05 05/03/16 14:20 WBC RBC Hgb Hct MCV MCHC RDW Plt Count MPV Platelet Estimate Platelet Comment Sodium Potassium Chloride Carbon Dioxide Anion Gap BUN Creatinine Plasma Glucose 499.2 H* POC Glucometer Random Glucose Calcium Creatine Kinase Troponin I Echo w/ normal LV and no sig . Carotid US shows moderate LICA stenosis CT Abdomen Over distended gallbladder with multiple small stones. No acute cholecystitis. Chest Xray Mild cardiomegaly without evidence of acute lung disease. HOSPITAL COURSE: Date of Admission:05/03/16 Date of Discharge: 05/03/16 This patient is a 80 yo F who presented to ED. for having dizziness with AV cruz dissociation p/w bradycardia with variable rates from 29-70's. Admitted to ICU for close monitoring. # Acute AV cruz dissociation with Bradycardia with variable rates ; Placed the patient on External pacer( Trancutaneous pacer pads) ; Patient is able to tolerate mA of 14 not higher than that and PPM of [address] Miranda also at bedside. Dopamine drip continue with current rate 15mcg/kg/min. Patient is being transported to [facility] as per request who arranged the transport with [facility]. ;covering for Dr. Gracia, arranged the patient to Transfer to [facility]. # Abdominal pain due to distended gallbladder with multiple small stones. No acute cholecystitis. continue to monitor # T2DM uncontrolled sliding scale with coverage # HTN will hold benazepril- Hctz since elevated creatinine DVT Ppx Heparin 5000 units SQ, Q8 hrs - Fall Risk precaution As per arrangment, patient is being transferred to [facility]. Minutes to complete discharge: 30 Discharge Summary Reason For Visit: BRADYCARDIA/ AV DISSOCIATION - Instructions Referrals: Buzz Yo MD [Primary Care Provider] - Disposition: TRANSFER ACUTE CARE/OTHER HOSP - Home Medications Comprehensive Discharge Medication List: Ambulatory Orders Aspirin [Aspirin EC] 81 mg PO DAILY 02/02/16 Benazepril-Hctz 20-25 mg Tab 20 - 25 mg PO DAILY 02/02/16 Glipizide 10 mg PO BID 02/02/16 Lovastatin [Altoprev] 40 mg PO DAILY 02/02/16 Novolin N Vial - 21 units BID 02/02/16 Metformin HCl [Glucophage -] 1,000 mg PO BID@0700,1630 tablet 02/05/16 This patient is new to me today: Yes Date on this admission: 05/03/16 Emergency Visit: Yes ED Registration Date: 05/03/16 Care time: The patient presented to the Emergency Department on the above date and was hospitalized for further evaluation of their emergent condition. Critical Care patient: No - Discharge Referral Referred to [facility] Med P.C.: No
[2016-05-03] MEDS ORDERED: CHLORHEXIDINE GLUCONATE 4% CLEANSER FOR DECOLONIZATION TP SCH (22:00)
--- NOTE | 2016-05-03 23:45 | EKG ---
Test Reason : Blood Pressure : / mmHG Vent. Rate : 039 BPM Atrial Rate : 040 BPM P-R Int : 000 ms QRS Dur : 134 ms QT Int : 452 ms P-R-T Axes : 047 009 027 degrees QTc Int : 363 ms SINUS RHYTHM WITH COMPLETE HEART BLOCK WITH VENTRICULAR ESCAPE RHYTHM INFERIOR INFARCT , AGE UNDETERMINED ANTEROSEPTAL INFARCT , AGE UNDETERMINED ABNORMAL ECG Confirmed by BRINDA SOLOMON MD ([id number]) on 05/03/2016 11:45:22 PM Referred By: Confirmed By:BRINDA SOLOMON MD
== END 2016-05-03 17:42 | disposition short-term general hospital (02) | DRG 310 ==
LOC: JER 18:52 → UNDOADMIN 20:58 → JERBED 20:58 → JICU 05-03 03:09 → JERBED 05-03 03:09
PROVIDERS: ADMIT Internal Medicine Cardiovascular Disease; ATTEND Internal Medicine
DX: I44.2 Atrioventricular block, complete (principal); R00.1 Bradycardia, unspecified; E11.65 Type 2 diabetes mellitus with hyperglycemia; I10 Essential (primary) hypertension; R10.9 Unspecified abdominal pain; Z79.4 Long term (current) use of insulin; E78.5 Hyperlipidemia, unspecified; I35.0 Nonrheumatic aortic (valve) stenosis; R55 Syncope and collapse
CPT/HCPCS: 36415; 71010-TC; 74176-TC; 80048; 80053; 82550; 82947; 84484; 85025; 85027; 85610; 93005; 93010; 99285-25; J1644

== ENCOUNTER 2016-06-14 18:22 | Emergency (ER) | payer OTHER ==
[2016-06-14 18:29] VITALS: BMI 32.5
--- NOTE | 2016-06-14 19:27 | PDOC ---
History of Present Illness - General History Source: Patient, Family (Sons), Old Records Exam Limitations: No Limitations - History of Present Illness Initial Comments: 06/14/16 21:11 The patient is an 80 year old female, with a significant past medical history of HTN, hyperlipidemia, diabetes and pacemaker (placed in April 2016), who presents to the emergency department with diffuse abdominal pain for the past 4 days but worsening today. The patient describes the abdominal pain as burning. She reports associated nausea but denies any episodes of vomiting. She reports taking Zantac, which gives her temporary relief of symptoms. The patient denies chest pain or shortness of breath. The patient denies fever, chills, diarrhea, constipation or any dysuria. The patients sons are at the bedside. Allergies: None reported. Past Surgical History: Pacemaker (April 2016). Social History: Non smoker. Denies alcohol or drug use. PCP: Dr. Buzz Yo Tire Recapper: Dr. Gracia <Cheli Abad - Last Filed: 06/14/16 23:29> - General History Source: Patient, Old Records Exam Limitations: No Limitations <Anai Ferrell - Last Filed: 06/15/16 00:56> - General Chief Complaint: Lightheaded Stated Complaint: DIZZINESS Time Seen by Provider: 06/14/16 19:27 Past History <Cheli Abad - Last Filed: 06/14/16 23:29> - Past Medical History Cardiac Disorders: Yes Diabetes: Yes (iddm) HTN: Yes Hypercholesterolemia: Yes - Surgical History Cardiac Surgery: Yes (PPM) - Immunization History Immunization Up to Date: Yes - Psycho/Social/Smoking Cessation Hx Anxiety: No Suicidal Ideation: No Smoking History: Never smoked Have you smoked in the past 12 months: No Information on smoking cessation initiated: No Hx Alcohol Use: No Drug/Substance Use Hx: No Substance Use Type: None Hx Substance Use Treatment: No <Anai Ferrell - Last Filed: 06/15/16 00:56> - Past Medical History Allergies/Adverse Reactions: Allergies Allergy/AdvReac Type Severity Reaction Status Date / Time No Known Allergies Allergy Verified 06/14/16 18:25 Home Medications: Ambulatory Orders Aspirin [Aspirin EC] 81 mg PO DAILY 02/02/16 Glipizide 10 mg PO BID 02/02/16 Lovastatin [Altoprev] 40 mg PO DAILY 02/02/16 Metformin HCl [Glucophage -] 1,000 mg PO BID@0700,1630 tablet 02/05/16 Benazepril/Hydrochlorothiazide [Benazepril-Hctz 20-25 mg Tab] 1 each PO DAILY Metoprolol Succinate [Toprol Xl -] 12.5 mg PO DAILY 06/14/16 Famotidine [Pepcid] 20 mg PO DAILY #30 tablet 06/15/16 Review of Systems - Review of Systems Able to Perform ROS?: Yes Comments:: 06/14/16 21:14 GENERAL/CONSTITUTIONAL: No fever or chills. No weakness. HEAD, EYES, EARS, NOSE AND THROAT: No change in vision. No ear pain or discharge. No sore throat. CARDIOVASCULAR: No chest pain or shortness of breath. RESPIRATORY: No cough, wheezing, or hemoptysis. GASTROINTESTINAL: +Nausea, abdominal pain. No vomiting, diarrhea or constipation. GENITOURINARY: No dysuria, frequency, or change in urination. MUSCULOSKELETAL: No joint or muscle swelling or pain. No neck or back pain. SKIN: No rash. NEUROLOGIC: No headache, vertigo, loss of consciousness, or change in strength/ sensation. ENDOCRINE: No increased thirst. No abnormal weight change. HEMATOLOGIC/LYMPHATIC: No anemia, easy bleeding, or history of blood clots. ALLERGIC/IMMUNOLOGIC: No hives or skin allergy. <Cheli Abad - Last Filed: 06/14/16 23:29> *Physical Exam - Vital Signs Last Vital Signs Temp Pulse Resp BP Pulse Ox 98.1 F 87 18 130/90 100 06/14/16 18:25 06/14/16 18:25 06/14/16 18:25 06/14/16 18:25 06/14/16 18:25 - Physical Exam Comments: 06/14/16 20:52 GENERAL: Awake, alert, and fully oriented, in no acute distress. HEAD: No signs of trauma. EYES: PERRLA, EOMI, sclera anicteric, conjunctiva clear. ENT: Auricles normal inspection, hearing grossly normal, nares patent, oropharynx clear without exudates. Moist mucosa. NECK: Normal ROM, supple, no lymphadenopathy, JVD, or masses. LUNGS: Breath sounds equal, clear to auscultation bilaterally. No wheezes, and no crackles. HEART: Regular rate and rhythm, normal S1 and S2, no murmurs, rubs or gallops. ABDOMEN: Diffuse abdominal tenderness, worse in the RUQ and RLQ. Soft, normoactive bowel sounds. No guarding, no rebound. No masses. EXTREMITIES: Normal range of motion, no edema. No clubbing or cyanosis. No cords , erythema, or tenderness. NEUROLOGICAL: Cranial nerves II through XII grossly intact. Normal speech, normal gait. SKIN: Warm, dry, normal turgor, no rashes or lesions noted. <Cheli Abad - Last Filed: 06/14/16 23:29> - Vital Signs Last Vital Signs Temp Pulse Resp BP Pulse Ox 98.1 F 87 18 130/90 100 06/14/16 18:25 06/14/16 18:25 06/14/16 18:25 06/14/16 18:25 06/14/16 18:25 <Anai Ferrell - Last Filed: 06/15/16 00:56> ED Treatment Course - LABORATORY CBC & Chemistry Diagram: 06/14/16 19:30 06/14/16 19:30 <Cheli Abad - Last Filed: 06/14/16 23:29> - LABORATORY CBC & Chemistry Diagram: 06/14/16 19:30 06/14/16 19:30 <Anai Ferrell - Last Filed: 06/15/16 00:56> Medical Decision Making - Medical Decision Making 06/14/16 23:29 EXAM: CT ABDOMEN & PELVIS W/ CONTRAST Reviewed By: Dr. Daljit Benson IMPRESSION: Possible bladder mass. Gallstones. Small left renal angiomyolipoma. Duodenal diverticulum. <Cheli Abad - Last Filed: 06/14/16 23:29> - Medical Decision Making 06/14/16 21:18 80-year-old female with history of hypertension, diabetes, pacemaker who presents to the emergency department with 4 day history of diffuse abdominal pain and nausea. She is tender on the right side of her abdomen more than other areas of her abdomen. Differential diagnosis includes but is not limited to: Appendicitis, gallbladder disease, regional enteritis, mesenteric adenitis, urinary tract infection, ACS, dehydration, electrolyte abnormality, toxic/ metabolic derangement. Plan: 1. Labs 2. IV fluids for hydration 3. Urine analysis 4. Pain management 5. Antiemetics 6. CT scan of the abdomen and pelvis 7. EKG 8. Observe and reevaluate 06/15/16 00:53 Addendum: The CT scan shows gallstones but no acute cholecystitis and a questionable mass in the bladder. I have given the patient Pepcid and she is feeling improved. I've discussed the results of the lab work as well as the CT scan with the patient. The plan is to discharge home on Pepcid and follow-up with primary care doctor on Thursday. I have advised the patient to return to the emergency department if her symptoms persist, worsen, or new symptoms arise. <Anai Ferrell - Last Filed: 06/15/16 00:56> *DC/Admit/Observation/Transfer - Attestations Scribe Attestion: 06/14/16 19:39 Documentation prepared by Cheli Abad, acting as medical collections representative for Anai Ferrell MD. <Cheli Abad - Last Filed: 06/14/16 23:29> - Discharge Dispostion Admit: No - Attestations Physician Attestion: 06/14/16 21:19 I, Dr. Anai Ferrell, attest that the scribes documentation that appears above has been prepared under my direction and personally reviewed by me in its entirety. I confirmed that the note above accurately reflects all work, treatment, procedures, and medical decision-making performed by me. <Anai Ferrell - Last Filed: 06/15/16 00:56> Diagnosis at time of Disposition: Diffuse abdominal pain, Nausea - Discharge Dispostion Disposition: HOME Condition at time of disposition: Stable - Patient Instructions Printed Discharge Instructions: DI for Abdominal Pain-Adult Additional Instructions: You're being discharged on Pepcid 20 mgtake 1 tablet daily for the next 30 days. Please follow-up with your primary care physician on Thursday and return to the emergency department if your symptoms persist, worsen, or new symptoms arise.
[2016-06-14 19:50] LABS: BASOPHIL 1.5 % (0-2.0); EOSINOPHIL 0.7 % (0-4.5); MCH 29.6 pg (25.7-33.7); MCHC 33.7 g/dl (32.0-36.0); MEAN PLT VOLUME 8.6 fl (7.5-11.1); NEUTROPHILS 66.9 % (42.8-82.8); PLATELET COUNT 266 K/MM3 (134-434); RDW 12.8 % (11.6-15.6); WHITE BLOOD COUNT 10.4 K/mm3 (4.0-10.0)
[2016-06-14 20:13] LABS: ALBUMIN 3.7 g/dl (3.4-5.0); ANION GAP 12 (8-16); BILIRUBIN,TOTAL 0.2 mg/dL (0.2-1.0); CALCIUM 9.5 mg/dL (8.5-10.1); CO2 24 mmol/L (21-32); CREATININE 1.2 mg/dL (0.55-1.02); GLUCOSE,RANDOM 162 mg/dL (74-106); SGOT/AST 16 U/L (15-37); SGPT/ALT 26 U/L (12-78); TOT PROT 7.7 g/dl (6.4-8.2)
[2016-06-14 20:16] LABS: ALK PHOS 86 U/L (45-117); TROPONIN I < 0.02 ng/ml (0.00-0.05)
[2016-06-14] MEDS ORDERED: SODIUM CHLORIDE 1,000 ML IV STA (20:52)
[2016-06-14] MEDS ORDERED: morphine CARPU-JECT 4 MG/1 ML DISP.SYRIN IVPUSH ONE ×2 (20:52→22:07)
[2016-06-14] MEDS ORDERED: ONDANSETRON 4 MG/2 ML VIAL IVPUSH ONE (20:52)
[2016-06-14] MEDS ORDERED: morphine CARPU-JECT 4 MG/1 ML DISP.SYRIN ONE ×2 (21:02→22:48)
[2016-06-14] MEDS ORDERED: ONDANSETRON 4 MG/2 ML VIAL ONE (21:02)
[2016-06-14 21:23] LABS: URINE APPEARANCE CLEAR; URINE BILIRUBIN NEGATIVE (NEGATIVE); URINE BLOOD NEGATIVE (NEGATIVE); URINE COLOR YELLOW; URINE GLUCOSE (UA) NEGATIVE (NEGATIVE); URINE KETONE NEGATIVE (NEGATIVE); URINE LEUK ESTERASE NEGATIVE (NEGATIVE); URINE NITRITE NEGATIVE (NEGATIVE); URINE PROTEIN NEGATIVE (NEGATIVE); URINE UROBILINOGEN NEGATIVE E.U./dl (0.2-1.0)
[2016-06-15 00:10] VITALS: BP 161/67; PULSE 70; TEMP 98.4
--- NOTE | 2016-06-16 00:44 | EKG ---
Test Reason : Blood Pressure : / mmHG Vent. Rate : 077 BPM Atrial Rate : 077 BPM P-R Int : 132 ms QRS Dur : 140 ms QT Int : 418 ms P-R-T Axes : 034 005 008 degrees QTc Int : 473 ms SINUS RHYTHM RIGHT BUNDLE BRANCH BLOCK WHEN COMPARED WITH ECG OF 02-MAY-2016 19:17, VENT. RATE HAS INCREASED BY 38 BPM Confirmed by AMADOU MAY MD ([id number]) on 06/16/2016 12:43:47 AM Referred By: Confirmed By:AMADOU MAY MD
== END 2016-06-15 01:11 | disposition home or self-care (01) ==
LOC: JER 18:22
PROC: 3E0337Z Introduction of Electrolytic and Water Balance Substance into Peripheral Vein, Percutaneous Approach (ICD-10-PCS; principal; 2016-06-14)
PROC: 3E033NZ Introduction of Analgesics, Hypnotics, Sedatives into Peripheral Vein, Percutaneous Approach (ICD-10-PCS; 2016-06-14)
PROC: 3E033GC Introduction of Other Therapeutic Substance into Peripheral Vein, Percutaneous Approach (ICD-10-PCS; 2016-06-14)
DX: R10.84 Generalized abdominal pain (principal); R11.0 Nausea; I25.10 Atherosclerotic heart disease of native coronary artery without angina pectoris; I10 Essential (primary) hypertension; Z95.0 Presence of cardiac pacemaker; E11.9 Type 2 diabetes mellitus without complications; Z79.84 Long term (current) use of oral hypoglycemic drugs; E78.00 Pure hypercholesterolemia, unspecified; E78.5 Hyperlipidemia, unspecified
CPT/HCPCS: 36415; 74177-TC; 80053; 81003; 82550; 83690; 84484; 85025; 87086; 93005; 93010; 96361; 96374; 96375; 99282-25

== ENCOUNTER 2018-03-12 14:20 | Observation (INO) | payer OTHER ==
[2018-03-12] MEDS ORDERED: SODIUM CHLORIDE 500 ML IV STA (14:38)
--- NOTE | 2018-03-12 14:41 | PDOC ---
Rapid Medical Evaluation Chief Complaint: Vaginal Bleeding Time Seen by Provider: 03/12/18 14:36 Medical Evaluation: Allergies Allergy/AdvReac Type Severity Reaction Status Date / Time No Known Allergies Allergy Verified 03/12/18 14:35 03/12/18 14:37 sent by clay dry press mixer operator for vaginal bleeding x 5 days. patient reports similar symptom 3 x this year however this time its not stopping Pe; patient alert ox3 A: vaginal bleeding P: labs us patient to the ER for further management of care. 03/12/18 14:40 Discharge Disposition - Diagnosis Vaginal bleeding, abnormal - Referrals - Patient Instructions - Post Discharge Activity
[2018-03-12 15:24] LABS: BASO % 0.9 % (0-2.0); EOS % 3.2 % (0-4.5); HEMATOCRIT 37.4 % (32.4-45.2); HEMOGLOBIN 12.5 GM/dL (10.7-15.3); LYMPH % 33.7 % (8-40); MCH 29.6 pg (25.7-33.7); MCHC 33.4 g/dl (32.0-36.0); MEAN CELL VOLUME 88.8 fl (80-96); MEAN PLT VOLUME 9.3 fl (7.5-11.1); MONO % 6.9 % (3.8-10.2); NEUT % 55.3 % (42.8-82.8); PLATELET COUNT 235 K/MM3 (134-434); RBC 4.21 M/mm3 (3.60-5.2); RDW 12.8 % (11.6-15.6); WHITE BLOOD COUNT 10.1 K/mm3 (4.0-10.0)
[2018-03-12 15:32] LABS: INR 0.92 (0.83-1.09); PROTHROMBIN TIME (PATIENT) 10.9 SEC (9.7-13.0)
[2018-03-12 15:41] LABS: ALK PHOS 102 U/L (45-117); ANION GAP 9 MMOL/L (8-16); BILIRUBIN,TOTAL 0.2 mg/dL (0.2-1); BLOOD UREA NITROGEN 58 mg/dL (7-18); CALCIUM 10.3 mg/dL (8.5-10.1); CHLORIDE 103 mmol/L (98-107); CO2 25 mmol/L (21-32); CREATININE 1.2 mg/dL (0.55-1.3); GLUCOSE,RANDOM 108 mg/dL (74-106); POTASSIUM 4.4 mmol/L (3.5-5.1); SGOT/AST 18 U/L (15-37); SGPT/ALT 23 U/L (13-61); SODIUM 137 mmol/L (136-145)
[2018-03-12] MEDS ORDERED: ONDANSETRON 4 MG/2 ML VIAL ONE (15:44)
--- NOTE | 2018-03-12 17:06 | PDOC ---
History of Present Illness <Glory Copeland - Last Filed: 03/12/18 19:01> - History of Present Illness Initial Comments: 03/12/18 18:56 The patient is a 82-year-old female with past medical history significant for HTN, HLD, IDDM, pacemaker (2 years ago, secondary to slow heart), hysterectomy presents to the emergency department with vaginal bleeding for the past 5 days. The patient reports since Thursday shes been having bright red blood mostly when she pees, bleeding through 3-4 pads a day. The patient reports following up with [facility] [employer] Dr. Angela Pearl today who did a pelvic exam and states there was something in the belly and referred her to the ER. The patient reports 2 prior similar incidents this year, in August and October that self-resolved after 2 days. The patient presents today, secondary to 5 days of bleeding without relief. The patient states her last bowel movement was a day prior w/o bleeding. DEnies weight loss. Denies abd pain. Case discussed with Dr. Pearl who called the patient in, states pt has hx of hysterectomy and presents with intermitted vaginal bleeding. States she performed a speculum exam which showed no active bleeding from cervix but a clot near the urethra which made her concerned for another source of bleeding. Denies vaginal pain, itching, or discharge, dysuria, frequency or urgency to urinate, polyuria, chest pain, nausea, vomiting, diarrhea, or constipation. The patient denies being sexually active. Denies family history of CA. Allergies: NKA Social history: . None reported Surgical history: Pacemaker and hysterectomy PCP: Dr. Brian Yo <Quiana Mendez - Last Filed: 03/12/18 21:54> - General Chief Complaint: Vaginal Bleeding Stated Complaint: PCP SENT Time Seen by Provider: 03/12/18 14:36 Past History <Glory Copeland - Last Filed: 03/12/18 19:01> - Past Medical History Cardiac Disorders: Yes COPD: No Diabetes: Yes (iddm) HTN: Yes Hypercholesterolemia: Yes - Surgical History Cardiac Surgery: Yes (PPM) - Immunization History Immunization Up to Date: Yes - Suicide/Smoking/Psychosocial Hx Smoking History: Never smoked Have you smoked in the past 12 months: No Hx Alcohol Use: No Drug/Substance Use Hx: No Substance Use Type: None Hx Substance Use Treatment: No <NasQuiana barraza - Last Filed: 03/12/18 21:54> - Past Medical History Allergies/Adverse Reactions: Allergies Allergy/AdvReac Type Severity Reaction Status Date / Time No Known Allergies Allergy Verified 03/12/18 14:35 Home Medications: Ambulatory Orders Aspirin [Aspirin EC] 81 mg PO DAILY 02/02/16 Glipizide 10 mg PO BID 02/02/16 Lovastatin [Altoprev] 40 mg PO DAILY 02/02/16 metFORMIN HCL [Glucophage -] 1,000 mg PO BID@0700,1630 tablet 02/05/16 Benazepril/Hydrochlorothiazide [Benazepril-Hctz 20-25 mg Tab] 1 each PO DAILY Metoprolol Succinate [Toprol Xl -] 12.5 mg PO DAILY 06/14/16 Famotidine [Pepcid] 20 mg PO DAILY #30 tablet 06/15/16 Insulin Regular [NOVOLIN R VIAL *IVPUSH / ER / ICU Only*] 0 units SQ BIDAC PRN 03/12/18 Review of Systems - Review of Systems Comments:: 03/12/18 19:01 GENERAL/CONSTITUTIONAL: No fever or chills. No weakness. HEAD, EYES, EARS, NOSE AND THROAT: No change in vision. No ear pain or discharge. No sore throat. GASTROINTESTINAL: No nausea, vomiting, diarrhea or constipation. GENITOURINARY: +Vaginal bleeding, denies vaginal itching or discharge. No dysuria, frequency, or change in urination, polyuria. CARDIOVASCULAR: No chest pain or shortness of breath. RESPIRATORY: No cough, wheezing, or hemoptysis. MUSCULOSKELETAL: No joint or muscle swelling or pain. No neck or back pain. SKIN: No rash NEUROLOGIC: No headache, vertigo, loss of consciousness, or change in strength/ sensation. ENDOCRINE: No increased thirst. No abnormal weight change. HEMATOLOGIC/LYMPHATIC: No anemia, easy bleeding, or history of blood clots. ALLERGIC/IMMUNOLOGIC: No hives or skin allergy. <Orlin Mendezmna - Last Filed: 03/12/18 21:54> *Physical Exam - Vital Signs Last Vital Signs Temp Pulse Resp BP Pulse Ox 98.5 F 80 18 168/75 98 03/12/18 14:35 11/16/18 18:10 03/12/18 18:10 03/12/18 18:10 03/12/18 18:10 <Glory Copeland - Last Filed: 03/12/18 19:01> - Vital Signs Last Vital Signs Temp Pulse Resp BP Pulse Ox 98.5 F 85 16 150/72 97 03/12/18 14:35 03/12/18 14:35 03/12/18 14:35 03/12/18 14:35 03/12/18 14:35 - Physical Exam Comments: 03/12/18 19:01 GENERAL: Awake, alert, and fully oriented, in no acute distress HEAD: No signs of trauma EYES: PERRLA, EOMI, sclera anicteric, conjunctiva clear ENT: Auricles normal inspection, hearing grossly normal, nares patent, oropharynx clear without exudates. Moist mucosa NECK: Normal ROM, supple, no lymphadenopathy, JVD, or masses LUNGS: Breath sounds equal, clear to auscultation bilaterally. No wheezes, and no crackles HEART: Regular rate and rhythm, normal S1 and S2, no murmurs, rubs or gallops ABDOMEN: Soft, nontender, normoactive bowel sounds. No guarding, no rebound. No masses : Deferred as pt had pelvic exam this AM at [facility] office EXTREMITIES: Normal range of motion, no edema. No cords, erythema, or tenderness BACK: No midline spinal tenderness in cervical/thoracic/lumbar region NEUROLOGICAL: Normal speech, cranial nerves intact, 5/5 strength in all 4 extremities, normal sensation to light touch in all 4 extremities, normal cerebellar exam, normal gait, normal tone SKIN: Warm, Dry, normal turgor, no rashes or lesions noted. <Quiana Mendez - Last Filed: 03/12/18 21:54> ED Treatment Course - LABORATORY CBC & Chemistry Diagram: 03/12/18 15:11 03/12/18 15:11 - ADDITIONAL ORDERS Additional order review: Laboratory Results 03/12/18 03/12/18 03/12/18 15:11 15:11 15:11 PT with INR 10.90 INR 0.92 Sodium 137 Potassium 4.4 Chloride 103 Carbon Dioxide 25 Anion Gap 9 BUN 58 H Creatinine 1.2 Creat Clearance w eGFR 42.90 Random Glucose 108 H Calcium 10.3 H Total Bilirubin 0.2 AST 18 ALT 23 Alkaline Phosphatase 102 Total Protein 8.0 Albumin 4.0 Blood Type O POSITIVE Antibody Screen Negative 03/12/18 15:11 RBC 4.21 MCV 88.8 MCHC 33.4 RDW 12.8 MPV 9.3 Neutrophils % 55.3 Lymphocytes % 33.7 D Monocytes % 6.9 Eosinophils % 3.2 D Basophils % 0.9 - Medications Given in the ED: ED Medications Discontinued Medications Generic Name Dose Route Start Last Admin Trade Name Freq PRN Reason Stop Dose Admin Sodium Chloride 500 mls @ 500 mls/hr 03/12/18 14:38 03/12/18 15:19 Normal Saline - IV 03/12/18 15:37 500 mls/hr ASDIR STA Administration <Glory Copeland - Last Filed: 03/12/18 19:01> - LABORATORY CBC & Chemistry Diagram: 03/12/18 15:11 03/12/18 15:11 - ADDITIONAL ORDERS Additional order review: Laboratory Results 03/12/18 03/12/18 15:11 15:11 PT with INR 10.90 INR 0.92 Sodium 137 Potassium 4.4 Chloride 103 Carbon Dioxide 25 Anion Gap 9 BUN 58 H Creatinine 1.2 Creat Clearance w eGFR 42.90 Random Glucose 108 H Calcium 10.3 H Total Bilirubin 0.2 AST 18 ALT 23 Alkaline Phosphatase 102 Total Protein 8.0 Albumin 4.0 03/12/18 15:11 RBC 4.21 MCV 88.8 MCHC 33.4 RDW 12.8 MPV 9.3 Neutrophils % 55.3 Lymphocytes % 33.7 D Monocytes % 6.9 Eosinophils % 3.2 D Basophils % 0.9 - RADIOLOGY Radiology Studies Ordered: Category Date Time Status ABDOMEN & PELVIS CT WITH CONTR [CT] Stat CT Scan 03/12/18 16:48 Ordered - Medications Given in the ED: ED Medications Discontinued Medications Generic Name Dose Route Start Last Admin Trade Name Freq PRN Reason Stop Dose Admin Sodium Chloride 500 mls @ 500 mls/hr 03/12/18 14:38 03/12/18 15:19 Normal Saline - IV 03/12/18 15:37 500 mls/hr ASDIR STA Administration <Quiana Mendez - Last Filed: 03/12/18 21:54> Medical Decision Making - Medical Decision Making 03/12/18 18:[address] Yo at 6:26, spoke with the service, waiting for a call back from Dr. Claudine Foote. Case discussed with Dr. Foote 6:34, who had been updated regarding the patient. Call placed to Dr. Angela Gallagher at 6:37. Case discussed with Dr. Angela Gallagher at 6:48 03/12/18 19:[address] Padilla at 6:50, spoke with the service, waiting for a call back from Dr. Mann. Case discussed with Dr. Mann at 6:54. <Glory Copeland - Last Filed: 03/12/18 19:01> - Medical Decision Making 03/12/18 18:44 82yo F presents to the ED with intermittent painless hematuria, found to have mass on bladder US and CTAP. High concern for malignancy. Results explained to patient, her son and granddaughter, including concern for cancer. All questions answered. Plan to admit pt for further w/u. Case discussed with Dr. Mann who will evaluate pt as inpt. Dr Gallagher updated about results. Case signed out to Dr. Anthony, pt accepted for admission. <Quiana Mendez - Last Filed: 03/12/18 21:54> *DC/Admit/Observation/Transfer <Glory Copeland - Last Filed: 03/12/18 19:01> - Discharge Dispostion Decision to Admit order: Yes - Attestations Physician Attestion: 03/12/18 19:18 I, Dr. Quiana Mendez MD, attest that this document has been prepared under my direction and personally reviewed by me in its entirety. I further attest, that it accurately reflects all work, treatment, procedures and medical decision -making performed by me. <Quiana Mendez - Last Filed: 03/12/18 21:54> Diagnosis at time of Disposition: Vaginal bleeding, abnormal, Mass of urinary bladder, Hematuria - Discharge Dispostion Condition at time of disposition: Stable
[2018-03-12 19:23] LABS: PH,URINE 6.5 (5.0-8.0); URINE APPEARANCE Cloudy; URINE BILIRUBIN 2+ (<2.0 mg/dL); URINE COLOR Red; URINE GLUCOSE (UA) Negative (NEGATIVE); URINE KETONE Trace (NEGATIVE); URINE LEUK ESTERASE Negative (NEGATIVE); URINE NITRITE Positive (NEGATIVE); URINE PROTEIN 3+ (NEGATIVE)
[2018-03-12 19:26] LABS: URINE BACTERIA MANY /hpf (NONE SEEN)
--- NOTE | 2018-03-12 19:27 | PN ---
Teaching Attending Note Name of Resident: Roque Anthony ATTENDING PHYSICIAN STATEMENT I saw and evaluated the patient. I reviewed the resident's note and discussed the case with the resident. I agree with the resident's findings and plan as documented. CC: sent in for for vaginal bleed SUBJECTIVE: Pt is an 82 y/o CF with a PMH significant for IDDM, HTN, HLD. She presents with 3-5 days of hematuria. Please refer to resident note for further historical details. She has had this in the past but it was self-limiting and resolved after a short period of time. This instance, though, was different with the bleeding being nonstop every time she uses the washroom. Hasn't had any recent instrumentation, no prior procedures or diagnostic workup. She was found in the ER on ultrasound and CT to have a 4x3 mass on the posterior wall of her bladder that will require followup from urology. Spoke with Dr. Torres and he agreed that this could be done as an outpatient. Patient did have a slightly elevated calcium that is only 0.2 over the upper limit of normal and is free of any and all hypercalcemic sx. The family was worried that she wouldn't be able to followup her CBC and Ca as an outpatient. 10 sys ROS done and negative aside from HPI PMH and PSH reviewed and are as per chart FH asked and is noncontributory Social hx has good family support. Doesn't drive. Never smoker, no EtOH OBJECTIVE: VS, labs, imaging reviewed NAD, AAOx3, resting in bed with family surrounding her NT ND +BS no distension noted with bladder NC AT EOMI PERRLA Trachea midline with no JVD CN2-12 wnl, no fnd Normal behavior and appropriate affect Labs reviewed; very slight hyperCa CT discussed; posterior bladder wall mass measuring [id number] with US results reviewed as well ASSESSMENT AND PLAN: Mrs. Thomas is an 82 y/o CF presenting for hematuria found to have a bladder mass and to be slightly hypercalcemic. 1) Hematuria in the setting of bladder wall mass -CBC wnl; likely 2/2 mass. -Recheck CBC in AM; can followup OP for further checks if hematuria persists but ultimately will need the mass addressed 2) Posterior bladder wall mass -Concern for malignancy; she will require a nonemergency procedure which Dr. Mann states he can do as an outpatient. Will refer her to urology for outpatient followup. Once tissue sample acquired will involve oncology if needed. She can get any imaging needed for staging, etc. as an outpatient and will need careful coordination between her PCP and her subspecialists 3) HTN -No acute issues; continue home meds and pursue GDMT as OP 4) DM -Continue home SSI while inpatient, check A1c 5) AV Kev dissasociation s/p pacemaker 6) Incidental finding of cholelithiasis 7) Incidental finding of diverticulosis Full Code Dispo: If calcium normal and CBC wnl can DC for followup as OP with urology. They told the resident when he phoned to give the information for followup with the patient for his office. Will provide and help coordinate this prior to her discharge.
[2018-03-12] MEDS ORDERED: INSULIN REGULAR HUMAN 100 UNITS/ML *VIAL SQ ONE (20:03)
[2018-03-12] MEDS ORDERED: INSULIN REGULAR HUMAN 100 UNITS/ML *VIAL ONE (20:08)
--- NOTE | 2018-03-12 20:52 | HP ---
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 Pt states she's had 3 such episodes over the last year, all of which stopped spontaneously. For the last 3-5 days, she's had persistent bleeding prompting her visit. No other complaints. No pain. 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 (3) Recent Travel: denies PAST MEDICAL HISTORY: as above PAST SURGICAL HISTORY: as above Social History: Smoking: denies Alcohol: denies Drugs: denies Family History: denies Allergies No Known Allergies Allergy (Verified 03/12/18 14:35) HOME MEDICATIONS: Home Medications Medication Instructions Recorded Aspirin [Aspirin EC] 81 mg PO DAILY 02/02/16 Glipizide 10 mg PO BID 02/02/16 Lovastatin [Altoprev] 40 mg PO DAILY 02/02/16 metFORMIN HCL [Glucophage -] 1,000 mg PO BID@0700,1630 tablet 02/05/16 Benazepril/Hydrochlorothiazide 1 each PO DAILY 06/14/16 [Benazepril-Hctz 20-25 mg Tab] Metoprolol Succinate [Toprol Xl -] 12.5 mg PO DAILY 06/14/16 Famotidine [Pepcid] 20 mg PO DAILY #30 tablet 06/15/16 Insulin Regular [NOVOLIN R VIAL 0 units SQ BIDAC PRN 03/12/18 *IVPUSH / ER / ICU Only*] REVIEW OF SYSTEMS CONSTITUTIONAL: Absent: fever, chills, diaphoresis, generalized weakness, malaise, loss of appetite, weight change HEENT: Absent: rhinorrhea, nasal congestion, throat pain, throat swelling, difficulty swallowing, mouth swelling, ear pain, eye pain, visual changes CARDIOVASCULAR: Absent: chest pain, syncope, palpitations, irregular heart rate, lightheadedness , peripheral edema RESPIRATORY: Absent: cough, shortness of breath, dyspnea with exertion, orthopnea, wheezing, stridor, hemoptysis GASTROINTESTINAL: Absent: abdominal pain, abdominal distension, nausea, vomiting, diarrhea, constipation, melena, hematochezia GENITOURINARY: hematuria Absent: dysuria, frequency, urgency, hesitancy, , flank pain, genital pain MUSCULOSKELETAL: Absent: myalgia, arthralgia, joint swelling, back pain, neck pain SKIN: Absent: rash, itching, pallor HEMATOLOGIC/IMMUNOLOGIC: Absent: easy bleeding, easy bruising, lymphadenopathy, frequent infections ENDOCRINE: Absent: unexplained weight gain, unexplained weight loss, heat intolerance, cold intolerance NEUROLOGIC: Absent: headache, focal weakness or paresthesias, dizziness, unsteady gait, seizure, mental status changes, bladder or bowel incontinence PSYCHIATRIC: Absent: anxiety, depression, suicidal or homicidal ideation, hallucinations. PHYSICAL EXAMINATION Vital Signs - 24 hr 03/12/18 03/12/18 03/12/18 14:35 18:10 19:05 Temperature 98.5 F 98.4 F Pulse Rate 85 Pulse Rate [ 80 74 Radial] Respiratory 16 18 16 Rate Blood Pressure 150/72 Blood Pressure 173/77 H [Left Arm] Blood Pressure 168/75 169/80 [Right Arm] O2 Sat by Pulse 97 98 98 Oximetry (%) GENERAL: Awake, alert, and fully oriented, in no acute distress. HEAD: Normal with no signs of trauma. EYES: Pupils equal, round and reactive to light, extraocular movements intact, sclera anicteric, conjunctiva clear. No lid lag. EARS, NOSE, THROAT: Moist mucous membranes. NECK: Normal range of motion, supple without lymphadenopathy, JVD, or masses. LUNGS: Breath sounds equal, clear to auscultation bilaterally. No wheezes, and no crackles. No accessory muscle use. HEART: Regular rate and rhythm, normal S1 and S2 without murmur, rub or gallop. ABDOMEN: Soft, nontender, not distended, normoactive bowel sounds, no guarding, no rebound, no masses. No hepatomegaly or splenomegaly. MUSCULOSKELETAL: Normal range of motion at all joints. No bony deformities or tenderness. No CVA tenderness. UPPER EXTREMITIES: 2+ pulses, warm, well-perfused. No cyanosis. No clubbing. No peripheral edema. LOWER EXTREMITIES: 2+ pulses, warm, well-perfused. No calf tenderness. No peripheral edema. NEUROLOGICAL: Cranial nerves II-XII intact. Normal speech. Normal gait. PSYCHIATRIC: Cooperative. Good eye contact. Appropriate mood and affect. SKIN: Warm, dry, normal turgor, no rashes or lesions noted, normal capillary refill. Laboratory Results - last 24 hr 03/12/18 03/12/18 03/12/18 15:11 15:11 15:11 WBC 10.1 H RBC 4.21 Hgb 12.5 Hct 37.4 MCV 88.8 MCH 29.6 MCHC 33.4 RDW 12.8 Plt Count 235 MPV 9.3 Absolute Neuts (auto) 5.6 Neutrophils % 55.3 Lymphocytes % 33.7 D Monocytes % 6.9 Eosinophils % 3.2 D Basophils % 0.9 Nucleated RBC % 0 PT with INR 10.90 INR 0.92 Sodium Potassium Chloride Carbon Dioxide Anion Gap BUN Creatinine Creat Clearance w eGFR POC Glucometer Random Glucose Calcium Total Bilirubin AST ALT Alkaline Phosphatase Total Protein Albumin Urine Color Urine Appearance Urine pH Ur Specific Crane Urine Protein Urine Glucose (UA) Urine Ketones Urine Blood Urine Nitrite Urine Bilirubin Urine Urobilinogen Ur Leukocyte Esterase Urine WBC (Auto) Urine RBC (Auto) Urine Bacteria Blood Type O POSITIVE Antibody Screen Negative 03/12/18 03/12/18 03/12/18 15:11 19:10 19:56 WBC RBC Hgb Hct MCV MCH MCHC RDW Plt Count MPV Absolute Neuts (auto) Neutrophils % Lymphocytes % Monocytes % Eosinophils % Basophils % Nucleated RBC % PT with INR INR Sodium 137 Potassium 4.4 Chloride 103 Carbon Dioxide 25 Anion Gap 9 BUN 58 H Creatinine 1.2 Creat Clearance w eGFR 42.90 POC Glucometer [id number] Random Glucose 108 H Calcium 10.3 H Total Bilirubin 0.2 AST 18 ALT 23 Alkaline Phosphatase 102 Total Protein 8.0 Albumin 4.0 Urine Color Red Urine Appearance Cloudy Urine pH 6.5 Ur Specific Crane 1.015 Urine Protein 3+ H Urine Glucose (UA) Negative Urine Ketones Trace Urine Blood 3+ H Urine Nitrite Positive Urine Bilirubin 2+ H Urine Urobilinogen 1.0 Ur Leukocyte Esterase Negative Urine WBC (Auto) No Result Required. Urine RBC (Auto) >100 Urine Bacteria Many Blood Type Antibody Screen ASSESSMENT/PLAN: Pt is a pleasant, distressed 82 y/o F with PMH DM, HTN, HLD, PPM, hysterectomy who presents to ED with complaint of vaginal bleed. Pt had imaging done, which revealed new bladder tumor, likely neoplastic. #Bladder tumor -identified on imaging -[facility] consulted by ED. -I spoke with Dr. Mann who stated she will need further work up, but that it will not be done for at least a few days, likely a week. -Family states pt cannot drive to her appointments and wants to see Urology in pt -Pending input from urology #DM -BGM ACHS -ISS ACHS #HTN -c/w benaz/hctz, metoprolol #HLD -c/w statin #hypercalcemia -10.3 -will hydrate and repeat #FEN -not on fluids -hypercalcemia -DM diet #PPx -SCDs as pt is bleeding #Dispo -Obs Roque Anthony MD PGY-2 IM Visit type - Emergency Visit Emergency Visit: Yes ED Registration Date: 03/12/18 Care time: The patient presented to the Emergency Department on the above date and was hospitalized for further evaluation of their emergent condition. - New Patient This patient is new to me today: Yes Date on this admission: 03/12/18 - Critical Care Critical Care patient: No
[2018-03-12] MEDS ORDERED: RANITIDINE HCL 150 MG TABLET (FP) ONE (21:56)
[2018-03-12] MEDS: RANITIDINE HCL 150 MG TABLET (FP) PO SCH (22:30)
[2018-03-13] MEDS: INSULIN SLIDING SCALE (NOVOLOG) 1 VIAL SQ SCH ×3 (01:55→12:09)
[2018-03-13 03:06] VITALS: BMI 30.8
[2018-03-13 07:31] LABS: HEMATOCRIT 35.4 % (32.4-45.2); HEMOGLOBIN 11.6 GM/dL (10.7-15.3); MCH 29.5 pg (25.7-33.7); MCHC 32.9 g/dl (32.0-36.0); MEAN CELL VOLUME 89.8 fl (80-96); MEAN PLT VOLUME 9.8 fl (7.5-11.1); PLATELET COUNT 196 K/MM3 (134-434); RBC 3.95 M/mm3 (3.60-5.2); RDW 12.6 % (11.6-15.6); WHITE BLOOD COUNT 8.5 K/mm3 (4.0-10.0)
[2018-03-13 08:08] LABS: ALBUMIN 3.5 g/dl (3.4-5.0); ALK PHOS 90 U/L (45-117); ANION GAP 11 MMOL/L (8-16); BILIRUBIN,TOTAL 0.3 mg/dL (0.2-1); BLOOD UREA NITROGEN 45 mg/dL (7-18); CALCIUM 9.1 mg/dL (8.5-10.1); CHLORIDE 106 mmol/L (98-107); CO2 22 mmol/L (21-32); CREATININE 1.1 mg/dL (0.55-1.3); GLUCOSE,RANDOM 187 mg/dL (74-106); POTASSIUM 4.7 mmol/L (3.5-5.1); SGOT/AST 11 U/L (15-37); SGPT/ALT 19 U/L (13-61); SODIUM 139 mmol/L (136-145)
--- NOTE | 2018-03-13 09:04 | DS ---
Physical Exam: SUBJECTIVE: Patient seen and examined. continues to have hematuria but not worse than arrival. no assoc pain. denies CP, SOB, fever, chills, N/V/C/D OBJECTIVE: Vital Signs Period Temp Pulse Resp BP Sys/[place] Pulse Ox Last 24 Hr 97.7 F-98.5 F 70-85 16-20 110-173/59-80 96-98 PHYSICAL EXAM GENERAL: The patient is awake, alert, and fully oriented, in no acute distress. HEAD: Normal with no signs of trauma. EYES: PERRL, extraocular movements intact, sclera anicteric, conjunctiva clear. ENT: Ears normal, nares patent, oropharynx clear without exudates, moist mucous membranes. NECK: Trachea midline, full range of motion, supple. LUNGS: Breath sounds equal, clear to auscultation bilaterally, no wheezes, no crackles, no accessory muscle use. HEART: Regular rate and rhythm, S1, S2 + Murmur. without rub or gallop. ABDOMEN: Soft, nontender, nondistended, normoactive bowel sounds, no guarding, no rebound, no hepatosplenomegaly, no masses. EXTREMITIES: 2+ pulses, warm, well-perfused, no edema. NEUROLOGICAL: Cranial nerves II through XII grossly intact. Normal speech, gait not observed. PSYCH: Normal mood, normal affect. SKIN: Warm, dry, normal turgor, no rashes or lesions noted. LABS Laboratory Results - last 24 hr 03/12/18 03/12/18 03/12/18 15:11 15:11 15:11 WBC 10.1 H RBC 4.21 Hgb 12.5 Hct 37.4 MCV 88.8 MCH 29.6 MCHC 33.4 RDW 12.8 Plt Count 235 MPV 9.3 Absolute Neuts (auto) 5.6 Neutrophils % 55.3 Lymphocytes % 33.7 D Monocytes % 6.9 Eosinophils % 3.2 D Basophils % 0.9 Nucleated RBC % 0 PT with INR 10.90 INR 0.92 Sodium Potassium Chloride Carbon Dioxide Anion Gap BUN Creatinine Creat Clearance w eGFR POC Glucometer Random Glucose Hemoglobin A1c % Calcium Total Bilirubin AST ALT Alkaline Phosphatase Total Protein Albumin Urine Color Urine Appearance Urine pH Ur Specific [place] Urine Protein Urine Glucose (UA) Urine Ketones Urine Blood Urine Nitrite Urine Bilirubin Urine Urobilinogen Ur Leukocyte Esterase Urine WBC (Auto) Urine RBC (Auto) Urine Bacteria Blood Type O POSITIVE Antibody Screen Negative 03/12/18 03/12/18 03/12/18 15:11 19:10 19:56 WBC RBC Hgb Hct MCV MCH MCHC RDW Plt Count MPV Absolute Neuts (auto) Neutrophils % Lymphocytes % Monocytes % Eosinophils % Basophils % Nucleated RBC % PT with INR INR Sodium 137 Potassium 4.4 Chloride 103 Carbon Dioxide 25 Anion Gap 9 BUN 58 H Creatinine 1.2 Creat Clearance w eGFR 42.90 POC Glucometer [phone] Random Glucose 108 H Hemoglobin A1c % Calcium 10.3 H Total Bilirubin 0.2 AST 18 ALT 23 Alkaline Phosphatase 102 Total Protein 8.0 Albumin 4.0 Urine Color Red Urine Appearance Cloudy Urine pH 6.5 Ur Specific [place] 1.015 Urine Protein 3+ H Urine Glucose (UA) Negative Urine Ketones Trace Urine Blood 3+ H Urine Nitrite Positive Urine Bilirubin 2+ H Urine Urobilinogen 1.0 Ur Leukocyte Esterase Negative Urine WBC (Auto) No Result Required. Urine RBC (Auto) >100 Urine Bacteria Many Blood Type Antibody Screen 03/13/18 03/13/18 03/13/18 06:00 06:00 06:00 WBC 8.5 RBC 3.95 Hgb 11.6 Hct 35.4 MCV 89.8 MCH 29.5 MCHC 32.9 RDW 12.6 Plt Count 196 MPV 9.8 Absolute Neuts (auto) Neutrophils % Lymphocytes % Monocytes % Eosinophils % Basophils % Nucleated RBC % PT with INR INR Sodium 139 Potassium 4.7 Chloride 106 Carbon Dioxide 22 Anion Gap 11 BUN 45 H Creatinine 1.1 Creat Clearance w eGFR 47.43 POC Glucometer Random Glucose 187 H Hemoglobin A1c % 9.1 H Calcium 9.1 Total Bilirubin 0.3 AST 11 L ALT 19 Alkaline Phosphatase 90 Total Protein 7.0 Albumin 3.5 Urine Color Urine Appearance Urine pH Ur Specific [place] Urine Protein Urine Glucose (UA) Urine Ketones Urine Blood Urine Nitrite Urine Bilirubin Urine Urobilinogen Ur Leukocyte Esterase Urine WBC (Auto) Urine RBC (Auto) Urine Bacteria Blood Type Antibody Screen 03/13/18 07:04 WBC RBC Hgb Hct MCV MCH MCHC RDW Plt Count MPV Absolute Neuts (auto) Neutrophils % Lymphocytes % Monocytes % Eosinophils % Basophils % Nucleated RBC % PT with INR INR Sodium Potassium Chloride Carbon Dioxide Anion Gap BUN Creatinine Creat Clearance w eGFR POC Glucometer 226 Random Glucose Hemoglobin A1c % Calcium Total Bilirubin AST ALT Alkaline Phosphatase Total Protein Albumin Urine Color Urine Appearance Urine pH Ur Specific [place] Urine Protein Urine Glucose (UA) Urine Ketones Urine Blood Urine Nitrite Urine Bilirubin Urine Urobilinogen Ur Leukocyte Esterase Urine WBC (Auto) Urine RBC (Auto) Urine Bacteria Blood Type Antibody Screen HOSPITAL COURSE: Date of Admission:03/12/18 Date of Discharge: 03/13/18 Admitting diagnosis; Hematuria, bladder mass Pre hospital course Pt is an 82 y/o F with PMH HTN, IDDM, HLD, 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 Pt states she's had 3 such episodes over the last year, all of which stopped spontaneously. For the last 3-5 days, she's had persistent bleeding prompting her visit. No other complaints. No pain. Subsequent hospital course Medicine observation. CT and u/s done showing 4.5x4.4x3.5cm bladder mass. Dr Aaron was notified who instructed for the patient to f/u in the office for cysto and bx. pt was observed overnight to ensure Hgb remained stable which it did. pt d/c home with instruction to f/u with urology early next week. verbalized understanding and agreement. pt was unaware of murmur which was auscultated. should have echo to evaluate if this is a new finding. pt is unsure if she had an echo in the past but given hx sure she has. pt has no symptoms suggestive of new murmur (fatigue, weakness, chest pain or pressure) Minutes to complete discharge: 40 Discharge Summary Reason For Visit: HEMATURIA,MASS OF URINARY BLADDER Current Active Problems Hematuria (Acute) Mass of urinary bladder (Acute) Vaginal bleeding, abnormal (Acute) Condition: Stable - Instructions Diet, Activity, Other Instructions: You were observed overnight in the hospital due to your bleeding. Your blood counts have remained stable. You were found to have a mass in your bladder which needs to be further evaluated. Please call the urologist (contact information provided) to schedule an appointment for further evaluation and biopsy of this mass to determine what it is as there is concern it could be cancerous. Resume your home medications. Hold your aspirin until you are seen by the urologist. Avoid taking NSAID or like products for pain (ibuprofen, naproxen, aleive, etc) Follow up with your primary care doctor in 1 week Call thursday to make an appointment with urologist, contact information provided Return to the ER if you develop sever fatigue, chest pain or difficulty breathing Referrals: Buzz Yo MD [Primary Care Provider] - Meño Mann MD [Staff Physician] - - Home Medications Comprehensive Discharge Medication List: Ambulatory Orders Glipizide 10 mg PO BID 02/02/16 Lovastatin [Altoprev] 40 mg PO DAILY 02/02/16 metFORMIN HCL [Glucophage -] 1,000 mg PO BID@0700,1630 tablet 02/05/16 Benazepril/Hydrochlorothiazide [Benazepril-Hctz 20-25 mg Tab] 1 each PO DAILY Metoprolol Succinate [Toprol XL -] 12.5 mg PO DAILY 06/14/16 Famotidine [Pepcid] 20 mg PO DAILY #30 tablet 06/15/16 Insulin Regular [Novolin R Vial -] 0 units SQ BIDAC PRN 03/12/18 This patient is new to me today: Yes Date on this admission: 03/13/18 Emergency Visit: Yes ED Registration Date: 03/12/18 Care time: The patient presented to the Emergency Department on the above date and was hospitalized for further evaluation of their emergent condition. Critical Care patient: No - Discharge Referral Referred to [facility] Med P.C.: No
[2018-03-13] MEDS ORDERED: metoPROLOL SUCCINATE 25 MG TAB.SR.24H (FP) PO SCH (10:00)
[2018-03-13] MEDS ORDERED: LISINOPRIL 20 MG TABLET (FP) PO SCH (10:00)
[2018-03-13] MEDS ORDERED: HYDROCHLOROTHIAZIDE 25 MG TABLET (FP) PO SCH (10:00)
[2018-03-13] MEDS: RANITIDINE HCL 150 MG TABLET (FP) PO SCH (11:05)
--- NOTE | 2018-03-13 11:28 | CON.GU ---
Consult - History of Present Illness History of Present Illness: 82 yo female admitted with GH over the past year, CT shows possible 4cm bladder mass, no hydro. HCT stable and pt being discharged today.No prior history - Past Medical History Cardio/Vascular: Yes: HTN, Hyperlipdemia ...: No Psych: Yes: Depression Endocrine: Yes: Diabetes Mellitus - Past Surgical History Past Surgical History: Yes: Hysterectomy - Alcohol/Substance Use Hx Alcohol Use: No - Smoking History Smoking history: Never smoked Have you smoked in the past 12 months: No - Social History Usual Living Arrangement: With Child History of Recent Travel: No Home Medications - Allergies Allergies/Adverse Reactions: Allergies Allergy/AdvReac Type Severity Reaction Status Date / Time No Known Allergies Allergy Verified 03/12/18 14:35 - Home Medications Home Medications: Ambulatory Orders Glipizide 10 mg PO BID 02/02/16 Lovastatin [Altoprev] 40 mg PO DAILY 02/02/16 metFORMIN HCL [Glucophage -] 1,000 mg PO BID@0700,1630 tablet 02/05/16 Benazepril/Hydrochlorothiazide [Benazepril-Hctz 20-25 mg Tab] 1 each PO DAILY Metoprolol Succinate [Toprol XL -] 12.5 mg PO DAILY 06/14/16 Famotidine [Pepcid] 20 mg PO DAILY #30 tablet 06/15/16 Insulin Regular [Novolin R Vial -] 0 units SQ BIDAC PRN 03/12/18 Review of Systems - Review of Systems Genitourinary: reports: Hematuria Physical Exam- Vital Signs: Vital Signs Temperature 98.1 F 03/13/18 05:54 Pulse Rate 70 03/13/18 05:54 Respiratory Rate 20 03/13/18 05:54 Blood Pressure 110/59 L 03/13/18 05:54 O2 Sat by Pulse Oximetry (%) 96 03/13/18 05:37 Gastrointestinal: Yes: Soft Renal/: Yes: Hematuria Labs: CBC, BMP 03/13/18 06:00 03/13/18 06:00 Imaging - Results Cat Scan: Report Reviewed Problem List - Problems (1) Hematuria Assessment/Plan: pt given my office info to f/u this week for cystoscopy Code(s): R31.9 - HEMATURIA, UNSPECIFIED
[2018-03-13 13:05] VITALS: BP 125/85; PULSE 86; TEMP 98
[2018-03-13] MEDS ORDERED: ATORVASTATIN CA 10 MG TABLET (FP) PO SCH (22:00)
== END 2018-03-13 13:13 | disposition home or self-care (01) ==
LOC: JER 14:20 → INTOOBSV 19:19 → JERBED 19:19 → J7W 03-13 01:02
PROVIDERS: ADMIT Internal Medicine; ATTEND Internal Medicine
PROC: 3E0337Z Introduction of Electrolytic and Water Balance Substance into Peripheral Vein, Percutaneous Approach (ICD-10-PCS; principal; 2018-03-12)
PROC: 3E013VG Introduction of Insulin into Subcutaneous Tissue, Percutaneous Approach (ICD-10-PCS; 2018-03-12)
DX: D41.4 Neoplasm of uncertain behavior of bladder (principal); I10 Essential (primary) hypertension; E11.9 Type 2 diabetes mellitus without complications; E78.5 Hyperlipidemia, unspecified; E83.52 Hypercalcemia; N93.9 Abnormal uterine and vaginal bleeding, unspecified; R31.9 Hematuria, unspecified; Z95.0 Presence of cardiac pacemaker; K80.20 Calculus of gallbladder without cholecystitis without obstruction; K57.30 Diverticulosis of large intestine without perforation or abscess without bleeding; Z90.710 Acquired absence of both cervix and uterus; Z79.4 Long term (current) use of insulin; Z79.84 Long term (current) use of oral hypoglycemic drugs
CPT/HCPCS: 36415; 74177-TC; 76856-TC; 80053; 81003; 81015; 82962; 83036; 85025; 85027; 85610; 86850; 86900; 86901; 87086; 87186; 96360; 96372; 99285-25; G0378

== ENCOUNTER 2018-04-01 06:58 | Day surgery (SDC) | payer OTHER ==
[2018-03-30 18:22] VITALS: BMI 32.0
[2018-04-01] MEDS ORDERED: PROPOFOL 20 ML ONE (08:46)
[2018-04-01] MEDS ORDERED: SUCCINYLCHOLINE CHLORIDE 200 MG/10 ML VIAL ONE (08:46)
[2018-04-01] MEDS ORDERED: DEXAMETHASONE SOD PHOSPHATE 4 MG/1 ML VIAL ONE ×2 (09:23→09:31)
[2018-04-01] MEDS ORDERED: ePHEDrine SULFATE 50 MG/1 ML AMPULE ONE (09:53)
[2018-04-01] MEDS ORDERED: INDOCYANINE GREEN 25 MG/10 ML VIAL IVPUSH ONE (09:56)
[2018-04-01] MEDS ORDERED: oxyCODONE HCL 5 MG TABLET PO PRN (10:14)
[2018-04-01] MEDS ORDERED: DEXTROSE 5%-0.45% SALINE 1,000 ML IV SCH (10:15)
--- NOTE | 2018-04-01 10:16 | OP ---
Operative Note - Note: Operative Date: 04/01/18 Pre-Operative Diagnosis: large bladder tumor Operation: TURBT Post-Operative Diagnosis: Same as Pre-op Anesthesia: General Specimens Removed: bladder tumor Operative Report Dictated: Yes
[2018-04-01 12:27] VITALS: PULSE 80
[2018-04-01 13:34] VITALS: BP 140/60; TEMP 97.7
--- NOTE | 2018-04-01 15:50 | OP ---
DATE OF OPERATION: 04/01/2018 PREOPERATIVE DIAGNOSIS: Large bladder tumor. POSTOPERATIVE DIAGNOSIS: Large bladder tumor. PROCEDURE: Transurethral resection of bladder tumor. SURGEON: Bella Fortune MD INDICATION: Patient is an 82-year-old female who has had intermittent hematuria for the past year, who just recently sought evaluation for this and noted to have a very large bladder tumor occupying the right side of the bladder including the ureteral orifice, and this was confirmed by cystoscopy and CAT scan. Treatment options reviewed. The patient elected to undergo TURBT, understood the risks of bleeding, infection, inability to completely eradicate the tumor burden, potential need for stent placement either intraoperatively or postoperatively due to swelling or ureteral edema, potential injury to adjacent organs, potential need for additional procedures. After informed consent was obtained, patient was taken to the OR, placed supine on the operating table. After cardiac monitoring had been administered, general anesthesia was established. She was prepped and draped in the dorsal lithotomy position. She was given 500 mg of Levaquin. The resectoscope was inserted into the urethra with the visual obturator without difficulty, and the bladder was visualized. A very large bladder tumor was seen occupying the whole right side of the bladder including ureteral orifice. Using the bipolar , the entire tumor was resected in its entirety until visible muscle fibers were seen in the bladder wall. The ureteral orifice was never seen on this right side. The ureteral orifice on the left side was normal. With the entire tumor burden removed, all the tumor chips were removed with the Ellik evacuator and sent to Pathology for analysis. At the end of the procedure, there was no evidence of active bleeding. No evidence of any residual tumor. The resectoscope was then removed, and a 22-Chinese Mendoza was then placed to straight drainage. Clear urine was retrieved. Patient was awoken form anesthesia and transferred to Recovery in stable condition. There were no complications. Estimated blood loss was minimal. BELLA FORTUNE M.D. [id number]
--- NOTE | 2018-04-02 15:22 | PATH ---
Surgical Pathology Report Patient Name: DULCE PALACIO [facility]. Rec. #: [id number] /Age/Gender: 1935 (Age: 82) / F Account: [id number] Location: [facility] SURGICAL Taken: 04/01/2018 Received: 04/01/2018 Reported: 04/02/2018 Physicians: Meño Mann M.D. 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 MUSCULARIS PROPRIA IDENTIFIED. NO FLAT CARCINOMA IN SITU (CIS) IDENTIFIED. Comment: Office of Dr. Mann informed that significant findings will be faxed (Janee). Electronically Signed Mary Jo Camacho M.D. Gross Description Received in formalin labeled "resected bladder tumor," is a 5.0 x 5.0 x 0.8 cm aggregate of tineo-pink, friable soft tissue fragments admixed with blood clot. The formalin is filtered and the specimen is entirely submitted in 7 cassettes. /04/01/2018 [place]/04/01/2018
== END 2018-04-01 13:30 | disposition home or self-care (01) ==
LOC: JASU-SURG 06:58
PROVIDERS: ATTEND Urology
PROC: 0T5B8ZZ Destruction of Bladder, Via Natural or Artificial Opening Endoscopic (ICD-10-PCS; principal; 2018-04-01 08:30)
DX: C67.9 Malignant neoplasm of bladder, unspecified (principal); I10 Essential (primary) hypertension; E11.9 Type 2 diabetes mellitus without complications; Z79.4 Long term (current) use of insulin
CPT/HCPCS: 82962; 88307-TC; 94760

== ENCOUNTER 2018-04-15 05:27 | Day surgery (SDC) | payer OTHER ==
[2018-04-06 12:01] VITALS: BMI 32.0
[2018-04-15] MEDS ORDERED: MIDAZOLAM HCL 2 MG/2 ML SINGLE DOSE VIAL ONE (11:00)
[2018-04-15] MEDS ORDERED: MINERAL OIL/PETROLATUM,WHITE 3.5 GM TUBE ONE (11:00)
[2018-04-15] MEDS ORDERED: FLUORESCEIN SODIUM 10% 500 MG/5 ML VIAL IJ ONE (12:15)
[2018-04-15] MEDS ORDERED: oxyCODONE HCL 5 MG TABLET PO PRN (12:20)
--- NOTE | 2018-04-15 12:22 | OP ---
Operative Note - Note: Operative Date: 04/15/18 Pre-Operative Diagnosis: bladder tumor Operation: TURBT Post-Operative Diagnosis: Same as Pre-op Anesthesia: General Estimated Blood Loss (mls): 5 Operative Report Dictated: Yes
[2018-04-15] MEDS ORDERED: DEXTROSE 5%-0.45% SALINE 1,000 ML IV SCH (12:30)
[2018-04-15] MEDS ORDERED: ONDANSETRON 4 MG/2 ML VIAL IVPUSH PRN (13:03)
[2018-04-15] MEDS ORDERED: LACTATED RINGERS SOLUTION 1,000 ML IV SCH (13:15)
--- NOTE | 2018-04-15 15:06 | OP ---
DATE OF OPERATION: 04/15/2018 PREOPERATIVE DIAGNOSIS: Bladder tumor. POSTOPERATIVE DIAGNOSIS: Bladder tumor. PROCEDURE: Transurethral resection of bladder tumor. SURGEON: Bella Fortune MD INDICATION: Patient is an 82-year-old female status post resection of a large bladder tumor at the right trigone of the bladder involving the right orifice as well pathology came back high-grade, non-muscle invasive, and due to the high-grade disease, it was recommended as per protocol for repeat resection. DESCRIPTION OF PROCEDURE: Patient was taken to the OR and placed supine on the table. After cardiac monitoring administered, general anesthesia was established, she was prepped and draped in dorsal lithotomy position. The resectoscope was inserted into urethra and then into bladder without difficulty. Left ureteral orifice was clean. The whole right side of the trigone was the tumor bed and no obvious tumor was seen, but the whole area of the tumor bed was re-resected. Again, ureteral orifice was not seen and despite giving fluorescein, no efflux was seen from that side. Resection was carried down until muscle-fiber tissue was identified. All bleeding sites were then fulgurated. Resectoscope was then removed and a 20-Indonesian Mendoza was then placed to straight drainage. Clear urine was retrieved. Patient awoken from anesthesia and transferred to recovery in stable condition. There were no complications. Estimated blood loss minimal. BELLA FORTUNE M.D. [id number]
[2018-04-15 15:28] VITALS: BP 145/77; PULSE 77; TEMP 98
--- NOTE | 2018-04-19 13:23 | PATH ---
Surgical Pathology Report Patient Name: DULCE PALACIO [facility]. Rec. #: [id number] /Age/Gender: 1935 (Age: 82) / F Account: [id number] Location: [facility] Taken: 04/15/2018 Received: 04/15/2018 Reported: 04/19/2018 Physicians: Meño Mann M.D. Specimen(s) Received A: BLADDER TUMOR B: BASE OF BLADDER TUMOR Clinical History Malignant neoplasm of overlapping sites of bladder Final Diagnosis A. BLADDER TUMOR, EXCISION: PREDOMINANTLY LOW GRADE, FOCALLY HIGH GRADE PAILLARY UROTHELIAL CARCINOMA, NONINVASIVE. SEPARATE FIBROCONNECTIVE TISSUE AND SMOOTH MUSCLE FRAGMENTS WITH NECROSIS AND SEVERE ACUTE INFLAMMATION. B. BASE OF BLADDER, BIOPSY: FIBROCONNECTIVE TISSUE WITH ACUTE AND CHRONIC INFLAMMATION. NEGATIVE FOR CARCINOMA. Electronically Signed Kuldip Buckley M.D. Gross Description A. Received in formalin labeled "bladder tumor," is a 4.0 x 2.3 x 0.3 cm aggregate of tineo-pink, firm to rubbery tissue fragments. The formalin is filtered and the specimen is entirely submitted in 2 cassettes. B. Received in formalin labeled "base of bladder tumor," is a 0.9 cm in greatest dimension tineo-pink portion of soft tissue. The specimen is submitted in toto in one cassette. 04/15/[address] [facility]04/15/2018
== END 2018-04-15 15:35 | disposition home or self-care (01) ==
LOC: JASU-SURG 05:27
PROVIDERS: ATTEND Urology
PROC: 0TBB8ZZ Excision of Bladder, Via Natural or Artificial Opening Endoscopic (ICD-10-PCS; principal; 2018-04-15 11:00)
DX: D49.4 Neoplasm of unspecified behavior of bladder (principal)
CPT/HCPCS: 82962; 88305-TC; 94760

== ENCOUNTER 2018-05-18 16:34 | Emergency (ER) | payer OTHER ==
[2018-05-18 16:48] VITALS: BP 131/89; PULSE 83; TEMP 97.6; BMI 32.0
--- NOTE | 2018-05-18 16:48 | PDOC ---
Rapid Medical Evaluation Chief Complaint: Nausea/Vomiting Time Seen by Provider: 05/18/18 16:44 Medical Evaluation: Allergies Allergy/AdvReac Type Severity Reaction Status Date / Time No Known Allergies Allergy Verified 04/06/18 11:48 05/18/18 16:46 I have performed a brief in person evaluation of this patient. The patient's CC: N/V HPI: Pt is a 82 YO female with a hx of bladder CA who took her second treatment of chemotherapy today and has had 2-3 episodes of vomiting. PE: Skin: Clear Heart: RRR Lungs: Clear MS. moves all extremities without difficulty. Neuro: Alert and oriented Psch: appropriate affect The patient will proceed to main ED for further evaluation. Discharge Disposition - Diagnosis Nausea & vomiting Qualifiers: Vomiting type: unspecified Vomiting Intractability: unspecified Qualified Code( s): R11.2 - Nausea with vomiting, unspecified - Referrals Referrals: Buzz Yo MD [Primary Care Provider] - - Patient Instructions - Post Discharge Activity
--- NOTE | 2018-05-18 17:36 | PDOC ---
Attending Attestation - HPI HPI: 05/18/18 18:29 The patient 82 year old female with a PMH of HTN, HLD, IDDM, Pacemaker ( 2 yrs ago), hysterectomy, bladder cancer s/p resection and recent round of chemo presenting with nausea and vomiting. The patient went to [facility] urgent care prior to arrival and states she had blood work done there. Patient also notes receiving IV fluids and medication at the urgent care but is unable to recall the name. Patient presents to the ER as her nausea and vomiting are persistent. Last episode of NB, NB was at 3:30 PM this evening. Patient denies GONZALEZ, vision change, palpitations, orthopnea, F,C, CP, SOB, urinary complaints, abdominal pain, diarrhea, constipation, hematruia, BPR, lightheadedness, weakness, sensory changes. SHx: None reported. Allergies: NKDA PMD: Dr. Yo - Physicial Exam PE: 05/18/18 18:44 ADULT EXAM GENERAL: Awake, alert, and fully oriented, in no acute distress LUNGS: Breath sounds equal, clear to auscultation bilaterally. No wheezes, and no crackles HEART: Regular rate and rhythm, normal S1 and S2, no murmurs, rubs or gallops ABDOMEN: Soft, nontender, normoactive bowel sounds. No guarding, no rebound. No masses EXTREMITIES: Normal range of motion, no edema. No clubbing or cyanosis. No cords, erythema, or tenderness NEUROLOGICAL: Cranial nerves II through XII grossly intact. Normal speech. SKIN: Warm, Dry, normal turgor, no rashes or lesions noted.
--- NOTE | 2018-05-18 17:56 | PDOC ---
History of Present Illness <Khalida Johnson - Last Filed: 05/18/18 19:45> - History of Present Illness Initial Comments: 05/18/18 17:52 82 yo F with h/o HTN, HLD, IDDM, Pacemaker ( 2 yrs ago), hysterectomy, bladder cancer s/p ressection ( 04-01-18), on chemotherapy ( 1 cycle) who p/w nausea/ vomiting. Patient reports acute onset of multiple non bilious, non bloody emesis today following chemotherapy this AM. Also endorses decreased appetite, GI upset beginning this AM immediately after chemotherapy. Patient arrives from urgent care facility "[facility]," with negative UA, CBC,CMP per patient. Reports that she received NS, and medication ( unable to recall), which improved symptoms, but still with nausea. Last episode of vomiting 3:30 PM this evening. 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 Dr. Sheldon. Normal bowel habits. Patient denies GONZALEZ, vision change, palpitations, orthopnea, F,C, CP, SOB, urinary complaints, abdominal pain, diarrhea, constipation, hematuria, BPR, lightheadedness, weakness, sensory changes. PMHx: as noted above ROS: as noted SHx: None reported. Allergies: NKDA PMD: Dr. Yo <Dami Hernández - Last Filed: 05/18/18 19:51> - General Chief Complaint: Nausea/Vomiting Stated Complaint: SENT BY PCP Time Seen by Provider: 05/18/18 16:44 Past History <Khalida Johnson - Last Filed: 05/18/18 19:45> - Past Medical History Anemia: No Asthma: No Cancer: No Cardiac Disorders: Yes (PPM-Photos to [employer] , 2016.) CVA: No COPD: No CHF: No Dementia: No Diabetes: Yes (iddm) GI Disorders: No Disorders: No HTN: Yes Hypercholesterolemia: Yes Liver Disease: No Seizures: No Thyroid Disease: No - Surgical History Abdominal Surgery: No Appendectomy: No Cardiac Surgery: Yes (PPM) Cholecystectomy: No Lung Surgery: No Neurologic Surgery: No Orthopedic Surgery: No - Immunization History Immunization Up to Date: Yes - Suicide/Smoking/Psychosocial Hx Smoking History: Never smoked Have you smoked in the past 12 months: No Hx Alcohol Use: No Drug/Substance Use Hx: No Substance Use Type: None Hx Substance Use Treatment: No <Dami Hernández - Last Filed: 05/18/18 19:51> - Past Medical History Allergies/Adverse Reactions: Allergies Allergy/AdvReac Type Severity Reaction Status Date / Time No Known Allergies Allergy Verified 05/18/18 16:45 Home Medications: Ambulatory Orders Lovastatin [Altoprev] 40 mg PO DAILY 02/02/16 metFORMIN HCL [Glucophage -] 1,000 mg PO BID@0700,1630 tablet 02/05/16 Insulin Regular [Novolin R Vial -] 21 units SQ BIDAC PRN 03/12/18 Benazepril/Hydrochlorothiazide [Benazepril-Hctz 20-12.5 mg Tab] 2 each PO DAILY 04/01/18 Ondansetron [Zofran Odt -] 4 mg SL TID #21 od.tablet 05/18/18 Review of Systems - Review of Systems Comments:: 05/18/18 17:54 GENERAL/CONSTITUTIONAL: No fever or chills. No weakness. HEAD, EYES, EARS, NOSE AND THROAT: No change in vision. No ear pain or discharge. No sore throat. CARDIOVASCULAR: No chest pain or shortness of breath RESPIRATORY: No cough, wheezing, or hemoptysis. GASTROINTESTINAL:+ nausea, vomiting. No diarrhea or constipation. GENITOURINARY: No dysuria, frequency, or change in urination. MUSCULOSKELETAL: No joint or muscle swelling or pain. No neck or back pain. SKIN: No rash NEUROLOGIC: No headache, vertigo, loss of consciousness, or change in strength/ sensation. ENDOCRINE: No increased thirst. No abnormal weight change HEMATOLOGIC/LYMPHATIC: No anemia, easy bleeding, or history of blood clots. ALLERGIC/IMMUNOLOGIC: No hives or skin allergy. <Dami Hernández - Last Filed: 05/18/18 19:51> *Physical Exam - Vital Signs Last Vital Signs Temp Pulse Resp BP Pulse Ox 97.6 F 83 15 131/89 98 05/18/18 16:46 05/18/18 16:46 05/18/18 16:46 05/18/18 16:46 05/18/18 16:46 <Khalida Johnson - Last Filed: 05/18/18 19:45> - Vital Signs Last Vital Signs Temp Pulse Resp BP Pulse Ox 97.6 F 83 15 131/89 98 05/18/18 16:46 05/18/18 16:46 05/18/18 16:46 05/18/18 16:46 05/18/18 16:46 - Physical Exam Comments: 05/18/18 17:54 GENERAL: Awake, alert, and fully oriented, in no acute distress HEAD: No signs of trauma, normocephalic, atraumatic EYES: PERRLA, EOMI, sclera anicteric, conjunctiva clear ENT: Auricles normal inspection, hearing grossly normal, nares patent, oropharynx clear without exudates. Moist mucosa NECK: Normal ROM, supple, no lymphadenopathy, JVD, or masses LUNGS: No distress, speaks full sentences, clear to auscultation bilaterally HEART: Regular rate and rhythm, normal S1 and S2, no murmurs, rubs or gallops, peripheral pulses normal and equal bilaterally. ABDOMEN: Soft, nontender, normoactive bowel sounds. No guarding, no rebound. No masses EXTREMITIES : Normal inspection, Normal range of motion, no edema. No clubbing or cyanosis. NEUROLOGICAL: Cranial nerves II through XII grossly intact. Normal speech, normal gait, no focal sensorimotor deficits SKIN: Warm, Dry, normal turgor, no rashes or lesions noted <Dami Hernández - Last Filed: 05/18/18 19:51> Moderate Sedation - Procedure Monitoring Vital Signs: Procedure Monitoring Vital Signs Temperature 97.6 F 05/18/18 16:46 Pulse Rate 83 05/18/18 16:46 Respiratory Rate 15 05/18/18 16:46 Blood Pressure 131/89 05/18/18 16:46 O2 Sat by Pulse Oximetry (%) 98 05/18/18 16:46 <Khalida Johnson - Last Filed: 05/18/18 19:45> - Procedure Monitoring Vital Signs: Procedure Monitoring Vital Signs Temperature 97.6 F 05/18/18 16:46 Pulse Rate 83 05/18/18 16:46 Respiratory Rate 15 05/18/18 16:46 Blood Pressure 131/89 05/18/18 16:46 O2 Sat by Pulse Oximetry (%) 98 05/18/18 16:46 <Dami Hernández - Last Filed: 05/18/18 19:51> ED Treatment Course - Medications Given in the ED: ED Medications Discontinued Medications Generic Name Dose Route Start Last Admin Trade Name Melody PRN Reason Stop Dose Admin Ondansetron HCl 4 mg 05/18/18 18:30 05/18/18 19:04 Zofran - PO 05/18/18 18:31 4 mg ONCE ONE Administration <Khalida Johnson - Last Filed: 05/18/18 19:45> Medical Decision Making - Medical Decision Making 05/18/18 18:33 82 yo F with h/o HTN, HLD, IDDM, Pacemaker ( 2 yrs ago), hysterectomy, bladder cancer s/p ressection ( 04-01-18), on chemotherapy ( 1 cycle) who p/w nausea/ vomiting. Vitals wnl, AF, A&Ox3. Physical exam unremarkable. Will consider chemo induced nausea, gastroenteirits, gastritis, esophagitis, biliary dz. Will provide anti-emetic, PO challenge, and reasses. ED Course: Zofran 05/18/18 19:50 Patient N/V improved. Stable for d/c with return precautions Advised to f/u with PMD <Dami Hernández - Last Filed: 05/18/18 19:51> *DC/Admit/Observation/Transfer - Discharge Dispostion Decision to Admit order: No <Khalida Johnson - Last Filed: 05/18/18 19:45> - Discharge Dispostion Decision to Admit order: No - Attestations Physician Attestion: 05/18/18 18:35 I attest to the information provided in this note. <Dami Hernández - Last Filed: 05/18/18 19:51> Diagnosis at time of Disposition: Nausea & vomiting Qualifiers: Vomiting type: unspecified Vomiting Intractability: unspecified Qualified Code( s): R11.2 - Nausea with vomiting, unspecified - Discharge Dispostion Disposition: HOME Condition at time of disposition: Good - Prescriptions Prescriptions: Ondansetron [Zofran Odt -] 4 mg SL TID #21 od.tablet - Referrals Referrals: Buzz Yo MD [Primary Care Provider] - - Patient Instructions Printed Discharge Instructions: DI for Vomiting -- Adult Additional Instructions: Please return to the emergency department with any new or worsening symptoms or concerns. Please follow up with your primary care physician within 72 hours. - Post Discharge Activity
[2018-05-18] MEDS ORDERED: ONDANSETRON 4 MG TABLET PO ONE (18:30)
[2018-05-18] MEDS ORDERED: ONDANSETRON *ODT* 4 MG TABLET ONE (18:57)
== END 2018-05-18 19:52 | disposition home or self-care (01) ==
LOC: JER 16:34
DX: R11.2 Nausea with vomiting, unspecified (principal); I10 Essential (primary) hypertension; E11.9 Type 2 diabetes mellitus without complications; Z79.4 Long term (current) use of insulin; Z95.0 Presence of cardiac pacemaker; Z85.51 Personal history of malignant neoplasm of bladder; Z90.710 Acquired absence of both cervix and uterus; Z79.899 Other long term (current) drug therapy
CPT/HCPCS: 99282-25

== ENCOUNTER 2019-11-12 13:39 | Emergency (ER) | payer OTHER ==
--- NOTE | 2019-11-12 13:47 | PDOC ---
Rapid Medical Evaluation Time Seen by Provider: 11/12/19 13:45 Medical Evaluation: Allergies Allergy/AdvReac Type Severity Reaction Status Date / Time No Known Allergies Allergy Verified 05/18/18 16:45 11/12/19 13:46 I have performed a brief in-person evaluation of this patient. The patient presents with a chief complaint of: FS 264 this am, ran out of her insulin, and for unclear reasons states PMD did not send over refill today. Denies any sxs. H/o IDDM, HTN, HLD, PPM for bradycardia, hysterectomy Pertinent physical exam findings:stable, well bessy I have ordered the following:nothing The patient will proceed to the ED for further evaluation. Discharge Disposition - Diagnosis Hyperglycemia - Referrals - Patient Instructions - Post Discharge Activity
[2019-11-12 13:50] VITALS: TEMP 97.9; BMI 33.2
[2019-11-12] MEDS ORDERED: SODIUM CHLORIDE 1,000 ML IV STA (14:11)
--- NOTE | 2019-11-12 14:13 | PDOC ---
History of Present Illness - General Chief Complaint: RX Refill Stated Complaint: BLOOD SUGAR PROBLEM Time Seen by Provider: 11/12/19 13:45 History Source: Patient Exam Limitations: No Limitations Past History - Travel History Traveled outside of the country in the last 30 days: No Close contact w/someone who was outside of country & ill: No - Medical History Allergies/Adverse Reactions: Allergies Allergy/AdvReac Type Severity Reaction Status Date / Time No Known Allergies Allergy Verified 05/18/18 16:45 Home Medications: Ambulatory Orders Lovastatin [Altoprev] 40 mg PO DAILY 02/02/16 metFORMIN HCL [Glucophage -] 1,000 mg PO BID@0700,1630 tablet 02/05/16 Insulin Regular [Novolin R Vial -] 21 units SQ BIDAC PRN 03/12/18 Benazepril/Hydrochlorothiazide [Benazepril-Hctz 20-12.5 mg Tab] 2 each PO DAILY 04/01/18 Anemia: No Asthma: No Cancer: No Cardiac Disorders: Yes (PPM-[employer] , 2016.) CVA: No COPD: No CHF: No Dementia: No Diabetes: Yes (iddm) GI Disorders: No Disorders: No HTN: Yes Hypercholesterolemia: Yes Liver Disease: No Seizures: No Thyroid Disease: No - Surgical History Abdominal Surgery: No Appendectomy: No Cardiac Surgery: Yes (PPM) Cholecystectomy: No Lung Surgery: No Neurologic Surgery: No Orthopedic Surgery: No - Immunization History Immunization Up to Date: Yes - Psycho-Social/Smoking History Smoking History: Never smoked Have you smoked in the past 12 months: No - Substance Abuse Hx (Audit-C & DAST Scrn) How often the patient has a drink containing alcohol: Never Score: In Men: 4 or > Positive; In Women: 3 or > Positive: 0 Screen Result (Pos requires Nsg. Audit-10AR): Negative In the last yr the pt used illegal drug/Rx for NonMed reason: No Score: Yes response is considered Positive: 0 Screen Result (Positive result requires Nsg. DAST-10): Negative Review of Systems - Review of Systems Able to Perform ROS?: Yes Comments:: 11/12/19 15:58 CONSTITUTIONAL: Absent: fever, chills, diaphoresis, generalized weakness, malaise, loss of appetite HEENT: Absent: rhinorrhea, nasal congestion, throat pain, throat swelling, difficulty swallowing, mouth swelling, ear pain, eye pain, visual Changes CARDIOVASCULAR: Absent: chest pain, loss of consciousness, palpitations, irregular heart rate, peripheral edema RESPIRATORY: Absent: cough, shortness of breath, dyspnea with exertion, orthopnea, wheezing, stridor, hemoptysis GASTROINTESTINAL: Absent: abdominal pain, abdominal distension, nausea, vomiting, diarrhea, constipation, melena, hematochezia GENITOURINARY: Absent: dysuria, frequency, urgency, hesitancy, hematuria, flank pain, genital pain MUSCULOSKELETAL: Absent: myalgia, arthralgia, joint swelling SKIN: Absent: rash, itching, pallor HEMATOLOGIC/IMMUNOLOGIC: Absent: easy bleeding, easy bruising, lymphadenopathy, frequent infections ENDOCRINE: Present: Hyperglycemia Absent: unexplained weight gain, unexplained weight loss, heat intolerance, cold intolerance NEUROLOGIC: Absent: headache, focal weakness or paresthesias, dizziness, unsteady gait, seizure, mental status changes, bladder or bowel incontinence PSYCHIATRIC: Absent: anxiety, depression, suicidal or homicidal ideation, hallucinations. Is the patient limited Armenian proficient: No *Physical Exam - Vital Signs Last Vital Signs Temp Pulse Resp BP Pulse Ox 97.9 F 82 18 153/74 99 11/12/19 13:47 11/12/19 13:47 11/12/19 13:47 11/12/19 13:47 11/12/19 13:47 - Physical Exam 11/12/19 15:59 GENERAL: Well developed, well nourished. Awake and alert. No acute distress. HEENT: Normocephalic, atraumatic. PERRLA, EOMI. No conjunctival pallor. Sclera are non- icteric. Moist mucous membranes. Oropharynx is clear. NECK: Supple. Full ROM. No JVD. Carotid pulses 2+ and symmetric, without bruits. No thyromegaly. No lymphadenopathy. CARDIOVASCULAR: Regular rate and rhythm. No murmurs, rubs, or gallops. Distal pulses are 2+ and symmetric. PULMONARY: No evidence of respiratory distress. Lungs clear to auscultation bilaterally. No wheezing, rales or rhonchi. ABDOMINAL: Soft. Non-tender. Non-distended. No rebound or guarding. No organomegaly. Normoactive bowel sounds. MUSCULOSKELETAL Normal range of motion at all joints. No bony deformities or tenderness. No CVA tenderness. EXTREMITIES: No cyanosis. No clubbing. No edema. No calf tenderness. SKIN: Warm and dry. Normal capillary refill. No rashes. No jaundice. NEUROLOGICAL: Alert, awake, appropriate. Cranial nerves 2-12 intact. No deficits to light touch and temperature in face, upper extremities and lower extremities. No motor deficits in the in face, upper extremities and lower extremities. Normoreflexic in the upper and lower extremities. Normal speech. Toes are down-going bilaterally. Gait is normal without ataxia. PSYCHIATRIC: Cooperative. Good eye contact. Appropriate mood and affect. ED Treatment Course - LABORATORY CBC & Chemistry Diagram: 11/12/19 14:15 11/12/19 14:15 - ADDITIONAL ORDERS Additional order review: Laboratory Results 11/12/19 13:57 POC Glucometer 317 11/12/19 13:57 POC Glucometer 317 Medical Decision Making - Medical Decision Making 11/12/19 15:59 Patient is an 84-year-old female multiple medical comorbidities including insulin-dependent diabetes, pacemaker, HLD, HTN, presents to the ER for elevated blood sugar readings. She states that she has run out of her Novolin R and has not taken it since yesterday. She usually takes it twice a day. She states she took her blood sugar at home and it was over 250 so she came to the ER for refill of her medication and evaluation. Denies lightheadedness, dizziness, increased thirst, increased urination, hematuria, dysuria, chest pain and shortness of breath. A/P: Hyperglycemia POC sugar in the ER shows a reading of 318. Basic labs, IV were placed. 1 L of fluids run slowly given. Potassium 4.7, 10 units of regular insulin given. Repeat blood sugar 257. [facility] They states she is unable to refill her prescription until November 30. 1 vial will cost the patient over $180 [id number] which she is unable to afford at this time. Patient is an unsafe discharge if she is unable to get insulin. Hospital pharmacy was called for an emergency fill of her Humulin R. 1 vial given to the patient as a courtesy. Advised patient to follow-up with her primary care doctor on Thursday for further management of her diabetes. Patient states she has not been requiring more insulin than usual. Patient states she will see Dr. Pimentel on Thursday. Discharge home I discussed the physical exam findings, ancillary test results and final diagnoses with the patient. I answered all of the patient's questions. The marcus ent was satisfied with the care received and felt comfortable with the discharge plan and treatment plan. The Patient agrees to follow up with the primary care physician/specialist within 24-72 hours. Return precautions were given. Discharge - Discharge Information Problems reviewed: Yes Clinical Impression/Diagnosis: Hyperglycemia, Medication refill Condition: Stable Disposition: HOME - Admission No - Follow up/Referral Referrals: Buzz Yo MD [Primary Care Provider] - - Patient Discharge Instructions Patient Printed Discharge Instructions: DI for Hyperglycemia -- Adult Additional Instructions: You were seen for your high blood sugar today and medication refill. We were able to give you one vial as an emergency refill from the hospital. This may not last until your insurance refill of November 30. Please continue taking all your insulin as directed at home. Please follow-up with your primary care doctor on Thursday, to see about insulin options. Return to the ER for dizziness, lightheadedness, nausea, vomiting and diarrhea. - Post Discharge Activity
[2019-11-12 14:33] LABS: BASO % 0.8 % (0-2.0); EOS % 3.1 % (0-4.5); HEMATOCRIT 36.4 % (32.4-45.2); HEMOGLOBIN 12.4 GM/dL (10.7-15.3); LYMPH % 32.4 % (8-40); MCH 30.7 pg (25.7-33.7); MCHC 33.9 g/dl (32.0-36.0); MEAN CELL VOLUME 90.5 fl (80-96); MEAN PLT VOLUME 10.4 fl (7.5-11.1); MONO % 7.3 % (3.8-10.2); NEUT % 56.4 % (42.8-82.8); PLATELET COUNT 216 K/MM3 (134-434); RBC 4.02 M/mm3 (3.60-5.2); RDW 12.6 % (11.6-15.6); WHITE BLOOD COUNT 9.2 K/mm3 (4.0-10.0)
[2019-11-12 14:40] LABS: INR 0.93 (0.83-1.09)
[2019-11-12 15:12] LABS: ALBUMIN 3.7 g/dl (3.4-5.0); BILIRUBIN,TOTAL 0.3 mg/dL (0.2-1); BLOOD UREA NITROGEN 33.4 mg/dL (7-18); CALCIUM 9.8 mg/dL (8.5-10.1); CREATININE 1.3 mg/dL (0.55-1.3); POTASSIUM 4.7 mmol/L (3.5-5.1); TOT PROT 7.7 g/dl (6.4-8.2)
[2019-11-12] MEDS ORDERED: INSULIN REGULAR HUMAN 100 UNITS/ML *VIAL IVPUSH ONE (15:15)
[2019-11-12 15:59] VITALS: BP 175/75; PULSE 73
== END 2019-11-12 16:07 | disposition home or self-care (01) ==
LOC: JERFT 13:39 → SUPCPDRO 13:39 → JERFT 16:07
PROC: 3E013VG Introduction of Insulin into Subcutaneous Tissue, Percutaneous Approach (ICD-10-PCS; principal; 2019-11-12)
PROC: 3E0337Z Introduction of Electrolytic and Water Balance Substance into Peripheral Vein, Percutaneous Approach (ICD-10-PCS; 2019-11-12)
DX: E11.65 Type 2 diabetes mellitus with hyperglycemia (principal)
CPT/HCPCS: 36415; 80053; 82010; 82962; 85025; 85610; 99285-25

== ENCOUNTER 2023-03-02 16:04 | Emergency (ER) | payer OTHER ==
[2023-03-02 17:16] VITALS: PULSE 75; BMI 28.3
[2023-03-02] MEDS ORDERED: FAMOTIDINE 20 MG/50 ML IVPB 20 MG/50 ML MG IVPB ONE ×2 (20:37→21:24)
[2023-03-02] MEDS ORDERED: SODIUM CHLORIDE 0.9% 500 ML INFUS.BAG IV ONE (20:37)
[2023-03-02] MEDS ORDERED: ACETAMINOPHEN 1000 MG/100 ML BAG IVPB ONE (20:37)
[2023-03-02] MEDS ORDERED: ONDANSETRON 4 MG/2 ML VIAL IVPUSH ONE (20:37)
[2023-03-02 21:10] LABS: VENOUS O2 SATURATION 70.3 % (70-80); VENOUS PCO2 39.5 mmHg (38-52); VENOUS PH 7.411 (7.310-7.410)
[2023-03-02 21:20] LABS: BASO % 0.7 % (0-2.0); EOS % 0.1 % (0-4.5); HEMATOCRIT 34.7 % (32.4-45.2); HEMOGLOBIN 11.8 GM/dL (10.7-15.3); LYMPH % 22.4 % (8-40); MCH 28.9 pg (25.7-33.7); MCHC 33.9 g/dl (32.0-36.0); MEAN CELL VOLUME 85.1 fl (80-96); MEAN PLT VOLUME 8.9 fl (7.5-11.1); MONO % 13.3 % (3.8-10.2); NEUT % 63.5 % (42.8-82.8); PLATELET COUNT 222 10^3/uL (134-434); RBC 4.07 M/mm3 (3.60-5.2); RDW 13.5 % (11.6-15.6); WHITE BLOOD COUNT 11.2 K/mm3 (4.0-10.0)
[2023-03-02] MEDS ORDERED: ACETAMINOPHEN INJECTION 100 ML IVPB ONE (21:24)
[2023-03-02] MEDS ORDERED: ONDANSETRON 4 MG/2 ML VIAL ONE (21:24)
[2023-03-02 21:31] LABS: EPI CELLS 8 /uL (0-25.1); HYALINE CASTS 2 /uL (0-3.1); URINE APPEARANCE CLEAR; URINE BACTERIA 31 /uL (0-1359); URINE BILIRUBIN NEGATIVE (NEGATIVE); URINE COLOR YELLOW; URINE GLUCOSE (UA) 2+ (NEGATIVE); URINE KETONE TRACE (NEGATIVE); URINE LEUK ESTERASE NEGATIVE (NEGATIVE); URINE NITRITE NEGATIVE (NEGATIVE); URINE PROTEIN 2+ (NEGATIVE); URINE RBC 37 /uL (0-23.9); URINE UROBILINOGEN 0.2 mg/dL (0.2-1.0); URINE WBC 12 /uL (0-25.8)
[2023-03-02 21:39] LABS: ALBUMIN 3.5 g/dl (3.4-5.0); BLOOD UREA NITROGEN 27.1 mg/dL (7-18); MAGNESIUM 1.8 mg/dL (1.8-2.4)
[2023-03-02 21:40] LABS: CALCIUM 9.1 mg/dL (8.5-10.1)
[2023-03-02 21:42] LABS: CREATININE 1.3 mg/dL (0.55-1.3)
[2023-03-02 21:43] LABS: BILIRUBIN,TOTAL 0.4 mg/dL (0.2-1)
[2023-03-02 21:44] LABS: TOT PROT 7.3 g/dl (6.4-8.2)
[2023-03-02 22:15] LABS: POTASSIUM 4.3 mmol/L (3.5-5.1)
[2023-03-02 23:14] VITALS: BP 123/55; RESP 18; TEMP 98.8
== END 2023-03-03 00:17 | disposition home or self-care (01) ==
LOC: JER 16:04
PROC: 3E033GC Introduction of Other Therapeutic Substance into Peripheral Vein, Percutaneous Approach (ICD-10-PCS; principal; 2023-03-02)
PROC: 3E033NZ Introduction of Analgesics, Hypnotics, Sedatives into Peripheral Vein, Percutaneous Approach (ICD-10-PCS; 2023-03-02)
PROC: 3E033GC Introduction of Other Therapeutic Substance into Peripheral Vein, Percutaneous Approach (ICD-10-PCS; 2023-03-02)
DX: R05.9 Cough, unspecified (principal); R11.2 Nausea with vomiting, unspecified; J02.9 Acute pharyngitis, unspecified; R68.83 Chills (without fever); R35.89 Other polyuria; R68.2 Dry mouth, unspecified; U07.1 COVID-19
CPT/HCPCS: 0241U-QW; 36415; 71045-TC-FY; 80053; 81003; 82010; 82803; 82962; 83735; 84484; 85025; 87086; 93005; 93010; 99285-25

== ENCOUNTER 2024-01-29 15:12 | Inpatient (IN) | payer OTHER ==
[2024-01-29] MEDS ORDERED: ONDANSETRON 4 MG/2 ML VIAL ONE (17:18)
[2024-01-29] MEDS ORDERED: ACETAMINOPHEN INJECTION 100 ML ONE (17:18)
[2024-01-29] MEDS ORDERED: FAMOTIDINE 20 MG/50 ML IVPB 20 MG/50 ML MG IVPB ONE (17:18)
[2024-01-29] MEDS: SODIUM CHLORIDE 1,000 ML IV STA (17:28)
[2024-01-29] MEDS: ONDANSETRON 4 MG/2 ML VIAL IVPUSH ONE (17:28)
[2024-01-29] MEDS: FAMOTIDINE 20 MG/50 ML IVPB 20 MG/50 ML MG IVPB ONE (17:28)
[2024-01-29] MEDS: ACETAMINOPHEN 1000 MG/100 ML BAG IVPB ONE (17:28)
[2024-01-29 17:37] LABS: BASO % 0.1 % (0-2.0); HEMATOCRIT 34.2 % (32.4-45.2); HEMOGLOBIN 11.6 GM/dL (10.7-15.3); LYMPH % 2.8 % (8-40); MCH 29.4 pg (25.7-33.7); MCHC 33.9 g/dl (32.0-36.0); MEAN CELL VOLUME 86.9 fl (80-96); MEAN PLT VOLUME 8.6 fl (7.5-11.1); MONO % 6.3 % (3.8-10.2); NEUT % 90.8 % (42.8-82.8); PLATELET COUNT 219 10^3/uL (134-434); RBC 3.94 M/mm3 (3.60-5.2); RDW 13.3 % (11.6-15.6); WHITE BLOOD COUNT 15.3 K/mm3 (4.0-10.0)
[2024-01-29 17:53] LABS: POTASSIUM 4.1 mmol/L (3.5-5.1)
[2024-01-29 17:57] LABS: ALBUMIN 3.3 g/dl (3.4-5.0); BLOOD UREA NITROGEN 44.1 mg/dL (7-18); CALCIUM 9.8 mg/dL (8.5-10.1)
[2024-01-29 17:59] LABS: CREATININE 1.6 mg/dL (0.55-1.3)
[2024-01-29 18:01] LABS: BILIRUBIN,TOTAL 1.8 mg/dL (0.2-1); TOT PROT 6.9 g/dl (6.4-8.2)
[2024-01-29 18:30] LABS: LACTIC ACID 3.9 mmol/L (0.4-2.0)
[2024-01-29] MEDS ORDERED: PIPERACILLIN/TAZOB 4.5 GM 4.5 GM/100 ML BAG IVPB ONE (19:21)
[2024-01-29] MEDS: SODIUM CHLORIDE 0.9% 500 ML INFUS.BAG IV ONE (19:41)
[2024-01-29] MEDS: PIPERACILLIN/TAZOB 4.5 GM 4.5 GM in DEXTROSE 5%-WATER 100 ML IVPB ONE (19:42)
[2024-01-29] MEDS: CEFTRIAXONE 1,000 MG in DEXTROSE 5%-WATER - 50 ML IVPB ONE (19:44)
[2024-01-29 22:03] LABS: CALCIUM 9.1 mg/dL (8.5-10.1); POTASSIUM 4.7 mmol/L (3.5-5.1)
[2024-01-29 22:04] LABS: BLOOD UREA NITROGEN 43.2 mg/dL (7-18)
[2024-01-29 22:07] LABS: PH,URINE 5.5 (5.0-8.0); URINE APPEARANCE CLEAR; URINE BILIRUBIN NEGATIVE (NEGATIVE); URINE COLOR DK YELLOW; URINE GLUCOSE (UA) NEGATIVE (NEGATIVE); URINE KETONE NEGATIVE (NEGATIVE); URINE LEUK ESTERASE NEGATIVE (NEGATIVE); URINE NITRITE NEGATIVE (NEGATIVE); URINE PROTEIN NEGATIVE (NEGATIVE)
[2024-01-29 22:07] LABS: CREATININE 1.4 mg/dL (0.55-1.3)
[2024-01-29 22:09] LABS: LACTIC ACID 2.8 mmol/L (0.4-2.0)
[2024-01-29 22:39] LABS: PROTHROMBIN TIME (PATIENT) 54.8 SEC (9.7-13.0)
[2024-01-29 22:55] LABS: INR 4.99 (0.83-1.09)
[2024-01-30] MEDS: PIPERACILLIN/TAZOB 3.375 GM 3.375 GM in DEXTROSE 5%-WATER - 50 ML IVPB SCH (04:05)
[2024-01-30] MEDS: HEPARIN NA (PORCINE) 5,000 UNITS/ML 1ML VIAL SQ SCH (07:08)
[2024-01-30] MEDS: INSULIN ASPART SLIDING SCALE (NOVOLOG) 1 VIAL SQ SCH (07:09)
[2024-01-30] MEDS: DEXTROSE 5%-0.45% SALINE 1,000 ML IV SCH (08:37)
[2024-01-30 10:31] LABS: HEMATOCRIT 31.5 % (32.4-45.2); HEMOGLOBIN 10.6 GM/dL (10.7-15.3); MCH 29.8 pg (25.7-33.7); MCHC 33.7 g/dl (32.0-36.0); MEAN CELL VOLUME 88.2 fl (80-96); MEAN PLT VOLUME 9.4 fl (7.5-11.1); PLATELET COUNT 196 10^3/uL (134-434); RBC 3.57 M/mm3 (3.60-5.2); RDW 13.7 % (11.6-15.6); WHITE BLOOD COUNT 14.3 K/mm3 (4.0-10.0)
[2024-01-30 13:11] LABS: POTASSIUM 4.9 mmol/L (3.5-5.1)
[2024-01-30 13:15] LABS: BLOOD UREA NITROGEN 32.4 mg/dL (7-18); CALCIUM 8.8 mg/dL (8.5-10.1); MAGNESIUM 2.1 mg/dL (1.8-2.4)
[2024-01-30 13:17] LABS: CREATININE 1.4 mg/dL (0.55-1.3); PHOSPHOROUS 3.5 mg/dL (2.5-4.9)
[2024-01-30 13:18] LABS: BILIRUBIN,TOTAL 1.8 mg/dL (0.2-1); TOT PROT 6.3 g/dl (6.4-8.2)
[2024-01-31] MEDS: PIPERACILLIN/TAZOB 3.375 GM 3.375 GM in DEXTROSE 5%-WATER - 50 ML IVPB SCH ×3 (02:28→20:08)
[2024-01-31] MEDS: ONDANSETRON 4 MG/2 ML VIAL IVPUSH ONE (03:05)
[2024-01-31 03:15] LABS: MAGNESIUM 1.8 mg/dL (1.8-2.4)
[2024-01-31] MEDS: ALBUTEROL SO4 2.5/IPRATROPIUM 0.5 INH SOL 3 ML VIAL.NEB. NEB ONE (04:12)
[2024-01-31] MEDS ORDERED: PIPERACILLIN/TAZOBACTAM 3.375 GM VIAL IVPB ONE (09:13)
[2024-01-31 10:01] LABS: BASO % 0.1 % (0-2.0); HEMATOCRIT 35.2 % (32.4-45.2); HEMOGLOBIN 11.9 GM/dL (10.7-15.3); LYMPH % 5.7 % (8-40); MCH 29.6 pg (25.7-33.7); MCHC 33.9 g/dl (32.0-36.0); MEAN CELL VOLUME 87.3 fl (80-96); MEAN PLT VOLUME 9.1 fl (7.5-11.1); MONO % 5.5 % (3.8-10.2); NEUT % 88.7 % (42.8-82.8); PLATELET COUNT 218 10^3/uL (134-434); RBC 4.03 M/mm3 (3.60-5.2); RDW 13.5 % (11.6-15.6); WHITE BLOOD COUNT 13.2 K/mm3 (4.0-10.0)
[2024-01-31] MEDS: LIDOCAINE 5% TOPICAL PATCH TP SCH (10:23)
[2024-01-31 10:45] LABS: INR 2.8 (0.83-1.09); PROTHROMBIN TIME (PATIENT) 31.2 SEC (9.7-13.0)
[2024-01-31] MEDS ORDERED: CYCLOBENZAPRINE HCL 10 MG TABLET (FP) PO PRN ×2 (10:56→11:10)
[2024-01-31] MEDS: amLODIPine BESYLATE 5 MG TABLET (FP) PO ONE (11:45)
[2024-01-31] MEDS: CYCLOBENZAPRINE HCL 5 MG TABLET PO PRN (11:45)
[2024-01-31 12:05] LABS: ALBUMIN 3.1 g/dl (3.4-5.0); BLOOD UREA NITROGEN 19.2 mg/dL (7-18); CALCIUM 8.7 mg/dL (8.5-10.1); CREATININE 1.4 mg/dL (0.55-1.3); MAGNESIUM 1.7 mg/dL (1.8-2.4); PHOSPHOROUS 3.1 mg/dL (2.5-4.9); POTASSIUM 4.3 mmol/L (3.5-5.1); TOT PROT 7.1 g/dl (6.4-8.2)
[2024-01-31] MEDS: PHYTONADIONE 10 MG/1 ML AMP SQ ONE (13:00)
[2024-01-31] MEDS: MAGNESIUM OXIDE 400 MG TABLET (FP) PO ONE (13:01)
[2024-01-31] MEDS: SODIUM CHLORIDE 1,000 ML IV SCH (13:01)
[2024-01-31] MEDS: ALBUTEROL SO4 2.5/IPRATROPIUM 0.5 INH SOL 3 ML VIAL.NEB. NEB SCH (17:47)
[2024-01-31] MEDS: LIDOCAINE PATCH REMOVAL MC SCH (21:08)
[2024-02-01] MEDS: INSULIN (NOVOLOG) ASPART 100 UNITS/ML 10ML VIAL SQ ONE (00:19)
[2024-02-01] MEDS ORDERED: ACETAMINOPHEN 1000 MG/100 ML BAG IVPB ONE (00:42)
[2024-02-01] MEDS: methylPREDNISolone NA SUCC 40 MG/1 ML VIAL IVPUSH ONE (00:52)
[2024-02-01] MEDS: KETOROLAC TROMETHAMINE 15 MG/ML VIAL IVPUSH ONE (00:52)
[2024-02-01] MEDS: INSULIN (LEVEMIR) 100 UNITS/ML UNITS SQ SCH ×2 (01:51→22:24)
[2024-02-01] MEDS: KETOROLAC TROMETHAMINE 15 MG/ML VIAL IM ONE (03:13)
[2024-02-01 08:55] LABS: BASO % 0.2 % (0-2.0); HEMATOCRIT 34.6 % (32.4-45.2); HEMOGLOBIN 11.4 GM/dL (10.7-15.3); LYMPH % 3.8 % (8-40); MEAN CELL VOLUME 88.1 fl (80-96); MEAN PLT VOLUME 9.2 fl (7.5-11.1); MONO % 5.8 % (3.8-10.2); NEUT % 90.2 % (42.8-82.8); PLATELET COUNT 217 10^3/uL (134-434); RBC 3.93 M/mm3 (3.60-5.2); RDW 13.4 % (11.6-15.6); WHITE BLOOD COUNT 19.3 K/mm3 (4.0-10.0)
[2024-02-01 08:59] LABS: INR 2.62 (0.83-1.09); PROTHROMBIN TIME (PATIENT) 28.8 SEC (9.7-13.0)
[2024-02-01 09:20] LABS: POTASSIUM 4.2 mmol/L (3.5-5.1)
[2024-02-01 09:23] LABS: CALCIUM 8.6 mg/dL (8.5-10.1)
[2024-02-01 09:24] LABS: ALBUMIN 2.6 g/dl (3.4-5.0); BLOOD UREA NITROGEN 20.4 mg/dL (7-18); MAGNESIUM 2.1 mg/dL (1.8-2.4)
[2024-02-01 09:27] LABS: CREATININE 1.1 mg/dL (0.55-1.3); PHOSPHOROUS 3.1 mg/dL (2.5-4.9)
[2024-02-01 09:28] LABS: TOT PROT 6.7 g/dl (6.4-8.2)
[2024-02-01] MEDS: FUROSEMIDE 40 MG/4 ML INJECTABLE VIAL IVPUSH ONE (10:14)
[2024-02-01] MEDS: PHYTONADIONE 10 MG/1 ML AMP IVPB ONE (13:18)
[2024-02-01] MEDS: INSULIN ASPART SLIDING SCALE (NOVOLOG) 1 VIAL SQ SCH (13:30)
[2024-02-01 15:56] LABS: INR 2.21 (0.83-1.09); PROTHROMBIN TIME (PATIENT) 24.4 SEC (9.7-13.0)
[2024-02-01 15:58] LABS: ACTIVATED PTT 46.4 SECONDS (25.2-36.5)
[2024-02-01 19:24] LABS: INR 1.43 (0.83-1.09)
[2024-02-02] MEDS: INSULIN (NOVOLOG) ASPART 100 UNITS/ML 10ML VIAL SQ ONE (04:09)
[2024-02-02 07:04] LABS: HEMATOCRIT 35.4 % (32.4-45.2); HEMOGLOBIN 11.7 GM/dL (10.7-15.3); MCH 29.6 pg (25.7-33.7); MCHC 33.2 g/dl (32.0-36.0); MEAN CELL VOLUME 89.3 fl (80-96); MEAN PLT VOLUME 9.9 fl (7.5-11.1); PLATELET COUNT 228 10^3/uL (134-434); RBC 3.96 M/mm3 (3.60-5.2); RDW 13.6 % (11.6-15.6); WHITE BLOOD COUNT 18.2 K/mm3 (4.0-10.0)
[2024-02-02 07:14] LABS: INR 1.14 (0.83-1.09); PROTHROMBIN TIME (PATIENT) 12.8 SEC (9.7-13.0)
[2024-02-02 07:35] LABS: ALBUMIN 2.8 g/dl (3.4-5.0); BILIRUBIN,TOTAL 1.5 mg/dL (0.2-1); BLOOD UREA NITROGEN 32.3 mg/dL (7-18); CALCIUM 9.1 mg/dL (8.5-10.1); CREATININE 1.5 mg/dL (0.55-1.3); MAGNESIUM 2.1 mg/dL (1.8-2.4); PHOSPHOROUS 2.2 mg/dL (2.5-4.9); POTASSIUM 3.7 mmol/L (3.5-5.1); TOT PROT 7.1 g/dl (6.4-8.2)
[2024-02-02 08:52] LABS: ANISOCYTOSIS 1+; MACROCYTOSIS 0
[2024-02-02] MEDS: FUROSEMIDE 40 MG/4 ML INJECTABLE VIAL IVPUSH ONE (09:32)
[2024-02-02] MEDS: ACETAMINOPHEN 1000 MG/100 ML BAG IVPB ONE (14:13)
[2024-02-02] MEDS: NAPH,MB-DB/K PH,MBDB POWDER PACKET PO SCH (14:17)
[2024-02-03 08:33] LABS: INR 1.22 (0.83-1.09); PROTHROMBIN TIME (PATIENT) 13.7 SEC (9.7-13.0)
[2024-02-03 08:34] LABS: BASO % 0.2 % (0-2.0); EOS % 0.2 % (0-4.5); HEMATOCRIT 30.9 % (32.4-45.2); HEMOGLOBIN 10.5 GM/dL (10.7-15.3); LYMPH % 16.9 % (8-40); MCH 29.8 pg (25.7-33.7); MEAN CELL VOLUME 87.8 fl (80-96); MEAN PLT VOLUME 9.9 fl (7.5-11.1); MONO % 10.6 % (3.8-10.2); NEUT % 72.1 % (42.8-82.8); PLATELET COUNT 216 10^3/uL (134-434); RBC 3.52 M/mm3 (3.60-5.2); RDW 13.5 % (11.6-15.6); WHITE BLOOD COUNT 9.9 K/mm3 (4.0-10.0)
[2024-02-03 08:52] LABS: POTASSIUM 3.5 mmol/L (3.5-5.1)
[2024-02-03 08:58] LABS: BLOOD UREA NITROGEN 54.7 mg/dL (7-18); CALCIUM 8.1 mg/dL (8.5-10.1); MAGNESIUM 1.8 mg/dL (1.8-2.4)
[2024-02-03 09:00] LABS: PHOSPHOROUS 2.8 mg/dL (2.5-4.9)
[2024-02-03 09:02] LABS: TOT PROT 5.6 g/dl (6.4-8.2)
[2024-02-03] MEDS: INSULIN (NOVOLOG) ASPART 100 UNITS/ML 10ML VIAL SQ ONE (09:13)
[2024-02-03] MEDS: INSULIN (LEVEMIR) 100 UNITS/ML UNITS SQ SCH (09:14)
[2024-02-03] MEDS: SODIUM CHLORIDE 1,000 ML IV SCH (09:15)
[2024-02-03] MEDS: INSULIN ASPART SLIDING SCALE (NOVOLOG) 1 VIAL SQ SCH (11:42)
[2024-02-03] MEDS: ENOXAPARIN NA (PORCINE) 80 MG/0.8 ML DISP.SYRIN SQ SCH (21:24)
[2024-02-04] MEDS: ALBUTEROL SO4 2.5/IPRATROPIUM 0.5 INH SOL 3 ML VIAL.NEB. NEB SCH (07:45)
[2024-02-04] MEDS: INSULIN (LEVEMIR) 100 UNITS/ML UNITS SQ SCH (07:47)
[2024-02-04] MEDS: INSULIN ASPART SLIDING SCALE (NOVOLOG) 1 VIAL SQ SCH (07:49)
[2024-02-04] MEDS: PIPERACILLIN/TAZOB 3.375 GM 3.375 GM in DEXTROSE 5%-WATER - 50 ML IVPB SCH (09:59)
[2024-02-04] MEDS ORDERED: ENOXAPARIN NA (PORCINE) 80 MG/0.8 ML DISP.SYRIN SQ SCH (10:00)
[2024-02-04] MEDS: LIDOCAINE 5% TOPICAL PATCH TP SCH (10:01)
[2024-02-04 10:29] LABS: INR 1.18 (0.83-1.09); PROTHROMBIN TIME (PATIENT) 13.5 SEC (9.7-13.0)
[2024-02-04 10:32] LABS: HEMATOCRIT 28.8 % (32.4-45.2); HEMOGLOBIN 9.9 GM/dL (10.7-15.3); MCHC 34.4 g/dl (32.0-36.0); MEAN CELL VOLUME 87.2 fl (80-96); PLATELET COUNT 228 10^3/uL (134-434); RDW 13.7 % (11.6-15.6); WHITE BLOOD COUNT 14.2 K/mm3 (4.0-10.0)
[2024-02-04 10:52] LABS: POTASSIUM 3.4 mmol/L (3.5-5.1)
[2024-02-04 10:55] LABS: ALBUMIN 1.8 g/dl (3.4-5.0); CALCIUM 7.8 mg/dL (8.5-10.1); MAGNESIUM 1.9 mg/dL (1.8-2.4)
[2024-02-04 10:59] LABS: BILIRUBIN,TOTAL 0.8 mg/dL (0.2-1); TOT PROT 5.5 g/dl (6.4-8.2)
[2024-02-04] MEDS ORDERED: POTASSIUM CHLORIDE TABS 10 MEQ TABLET.ER (FP) PO ONE ×2 (13:50→17:45)
[2024-02-04] MEDS: SODIUM CHLORIDE 1,000 ML IV SCH (14:28)
[2024-02-04] MEDS: ACETAMINOPHEN 1000 MG/100 ML BAG IVPB SCH (14:29)
[2024-02-04] MEDS ORDERED: CEFTRIAXONE 2 GM in DEXTROSE 5%-WATER 100 ML IVPB SCH (14:30)
[2024-02-04] MEDS: CEFTRIAXONE 2 GM in DEXTROSE 5%-WATER 100 ML IVPB SCH (15:55)
[2024-02-04] MEDS: oxyCODONE HCL 5 MG TABLET PO PRN (16:13)
[2024-02-04] MEDS ORDERED: PIPERACILLIN/TAZOB 2.25 GM 2.25 GM in DEXTROSE 5%-WATER - 50 ML IVPB SCH (18:00)
[2024-02-04] MEDS: POTASSIUM CHLORIDE TABS 20 MEQ TABLET.ER (FP) PO ONE (18:12)
[2024-02-04 18:36] LABS: INR 1.17 (0.83-1.09); PROTHROMBIN TIME (PATIENT) 13.2 SEC (9.7-13.0)
[2024-02-04] MEDS: SODIUM CHLORIDE 0.45% 1,000 ML IV SCH (20:12)
[2024-02-04] MEDS: ENOXAPARIN NA (PORCINE) 80 MG/0.8 ML DISP.SYRIN SQ SCH (21:14)
[2024-02-04] MEDS: LIDOCAINE PATCH REMOVAL MC SCH (21:14)
[2024-02-05 10:01] LABS: BASO % 0.6 % (0-2.0); EOS % 2.6 % (0-4.5); HEMATOCRIT 29.8 % (32.4-45.2); HEMOGLOBIN 9.7 GM/dL (10.7-15.3); LYMPH % 12.6 % (8-40); MCHC 32.5 g/dl (32.0-36.0); MEAN CELL VOLUME 89.2 fl (80-96); MEAN PLT VOLUME 10.2 fl (7.5-11.1); MONO % 7.8 % (3.8-10.2); NEUT % 76.4 % (42.8-82.8); PLATELET COUNT 248 10^3/uL (134-434); RBC 3.35 M/mm3 (3.60-5.2); RDW 13.7 % (11.6-15.6)
[2024-02-05 10:08] LABS: INR 1.16 (0.83-1.09)
[2024-02-05 10:39] LABS: CALCIUM 8.1 mg/dL (8.5-10.1)
[2024-02-05 10:40] LABS: ALBUMIN 1.8 g/dl (3.4-5.0); BLOOD UREA NITROGEN 91.8 mg/dL (7-18)
[2024-02-05 10:43] LABS: CREATININE 3.6 mg/dL (0.55-1.3)
[2024-02-05 10:44] LABS: BILIRUBIN,TOTAL 0.6 mg/dL (0.2-1); TOT PROT 5.5 g/dl (6.4-8.2)
[2024-02-05] MEDS: BISACODYL 10 MG SUPP.RECT PR ONE (11:20)
[2024-02-05] MEDS: SODIUM CHLORIDE 0.45% 1,000 ML IV SCH (12:03)
[2024-02-05] MEDS: LACTATED RINGERS SOLUTION 1,000 ML/1,000 ML INFUS.BAG IV SCH ×2 (15:40→17:29)
[2024-02-06 08:53] LABS: URINE APPEARANCE CLOUDY; URINE BILIRUBIN NEGATIVE (NEGATIVE); URINE COLOR YELLOW; URINE GLUCOSE (UA) NEGATIVE (NEGATIVE); URINE KETONE NEGATIVE (NEGATIVE); URINE LEUK ESTERASE NEGATIVE (NEGATIVE); URINE NITRITE NEGATIVE (NEGATIVE); URINE PROTEIN NEGATIVE (NEGATIVE); URINE UROBILINOGEN 0.2 mg/dL (0.2-1.0)
[2024-02-06 10:04] LABS: HEMATOCRIT 29.1 % (32.4-45.2); HEMOGLOBIN 9.8 GM/dL (10.7-15.3); MCH 29.4 pg (25.7-33.7); MCHC 33.7 g/dl (32.0-36.0); MEAN CELL VOLUME 87.2 fl (80-96); MEAN PLT VOLUME 9.8 fl (7.5-11.1); PLATELET COUNT 305 10^3/uL (134-434); RBC 3.34 M/mm3 (3.60-5.2); RDW 13.8 % (11.6-15.6); WHITE BLOOD COUNT 22.1 K/mm3 (4.0-10.0)
[2024-02-06 10:15] LABS: POTASSIUM 4.1 mmol/L (3.5-5.1)
[2024-02-06 10:25] LABS: ALBUMIN 1.9 g/dl (3.4-5.0)
[2024-02-06 10:29] LABS: CREATININE 2.8 mg/dL (0.55-1.3)
[2024-02-06 10:31] LABS: BILIRUBIN,TOTAL 0.4 mg/dL (0.2-1); TOT PROT 5.6 g/dl (6.4-8.2)
[2024-02-06] MEDS: LACTATED RINGERS SOLUTION 1,000 ML/1,000 ML INFUS.BAG IV SCH (11:34)
[2024-02-06 13:22] LABS: ANISOCYTOSIS 0; HELMET CELLS 0; HOWELL-JOLLY BODIES 0; MACROCYTOSIS 0; OVALOCYTE 0; ROULEAU 0; SICKELED CELLS 0; TARGET CELLS 0; TEAR DROP CELLS 0; TOXIC GRANULATION 0
[2024-02-06] MEDS: PIPERACILLIN/TAZOB 2.25 GM 2.25 GM in DEXTROSE 5%-WATER - 50 ML IVPB SCH (16:48)
[2024-02-07 08:47] LABS: EPI CELLS 10 /uL (0-25.1); HYALINE CASTS 1 /uL (0-3.1); PH,URINE 5.5 (5.0-8.0); URINE APPEARANCE CLOUDY; URINE BACTERIA 78 /uL (0-1359); URINE BILIRUBIN NEGATIVE (NEGATIVE); URINE COLOR YELLOW; URINE GLUCOSE (UA) NEGATIVE (NEGATIVE); URINE KETONE NEGATIVE (NEGATIVE); URINE LEUK ESTERASE 2+ (NEGATIVE); URINE NITRITE NEGATIVE (NEGATIVE); URINE PROTEIN TRACE (NEGATIVE); URINE UROBILINOGEN 0.2 mg/dL (0.2-1.0); URINE WBC 19 /uL (0-25.8)
[2024-02-07 09:45] LABS: URINE RBC 248 /uL (0-23.9); YEAST PRESENT (NEGATIVE)
[2024-02-07 10:51] LABS: HEMATOCRIT 27.5 % (32.4-45.2); HEMOGLOBIN 9.1 GM/dL (10.7-15.3); MCH 29.2 pg (25.7-33.7); MCHC 33.1 g/dl (32.0-36.0); MEAN CELL VOLUME 88.4 fl (80-96); MEAN PLT VOLUME 9.4 fl (7.5-11.1); PLATELET COUNT 336 10^3/uL (134-434); RBC 3.12 M/mm3 (3.60-5.2); RDW 13.8 % (11.6-15.6)
[2024-02-07 11:23] LABS: POTASSIUM 4.2 mmol/L (3.5-5.1)
[2024-02-07 11:29] LABS: ALBUMIN 1.9 g/dl (3.4-5.0); CALCIUM 8.3 mg/dL (8.5-10.1); MAGNESIUM 2.2 mg/dL (1.8-2.4)
[2024-02-07 11:32] LABS: CREATININE 2.2 mg/dL (0.55-1.3); PHOSPHOROUS 6.3 mg/dL (2.5-4.9)
[2024-02-07 11:33] LABS: BILIRUBIN,TOTAL 0.4 mg/dL (0.2-1); TOT PROT 5.5 g/dl (6.4-8.2)
[2024-02-07 12:14] LABS: ANISOCYTOSIS 0; HELMET CELLS 0; HOWELL-JOLLY BODIES 0; MACROCYTOSIS 0; OVALOCYTE 0; ROULEAU 0; SICKELED CELLS 0; TARGET CELLS 0; TEAR DROP CELLS 0; TOXIC GRANULATION 0
[2024-02-07] MEDS: ALBUTEROL SO4 2.5/IPRATROPIUM 0.5 INH SOL 3 ML VIAL.NEB. NEB SCH (15:00)
[2024-02-07] MEDS: LACTATED RINGERS SOLUTION 1,000 ML/1,000 ML INFUS.BAG IV SCH (15:19)
[2024-02-08] MEDS ORDERED: INSULIN ASPART SLIDING SCALE (NOVOLOG) 1 VIAL SQ ONE (08:21)
[2024-02-08 11:25] LABS: HEMATOCRIT 27.1 % (32.4-45.2); HEMOGLOBIN 9.1 GM/dL (10.7-15.3); MCH 29.7 pg (25.7-33.7); MCHC 33.6 g/dl (32.0-36.0); MEAN CELL VOLUME 88.4 fl (80-96); MEAN PLT VOLUME 9.1 fl (7.5-11.1); PLATELET COUNT 382 10^3/uL (134-434); RBC 3.06 M/mm3 (3.60-5.2); WHITE BLOOD COUNT 13.2 K/mm3 (4.0-10.0)
[2024-02-08] MEDS: FUROSEMIDE 40 MG/4 ML INJECTABLE VIAL IVPUSH ONE (11:45)
[2024-02-08 11:55] LABS: POTASSIUM 4.1 mmol/L (3.5-5.1)
[2024-02-08 12:01] LABS: CALCIUM 8.3 mg/dL (8.5-10.1)
[2024-02-08 12:02] LABS: ALBUMIN 1.9 g/dl (3.4-5.0); BLOOD UREA NITROGEN 51.7 mg/dL (7-18); MAGNESIUM 2.1 mg/dL (1.8-2.4)
[2024-02-08 12:04] LABS: CREATININE 1.6 mg/dL (0.55-1.3); PHOSPHOROUS 3.9 mg/dL (2.5-4.9)
[2024-02-08 12:06] LABS: BILIRUBIN,TOTAL 0.4 mg/dL (0.2-1); TOT PROT 5.6 g/dl (6.4-8.2)
[2024-02-09 10:27] LABS: HEMATOCRIT 26.8 % (32.4-45.2); HEMOGLOBIN 8.8 GM/dL (10.7-15.3); MCH 29.3 pg (25.7-33.7); MCHC 32.9 g/dl (32.0-36.0); MEAN CELL VOLUME 88.8 fl (80-96); PLATELET COUNT 448 10^3/uL (134-434); RBC 3.02 M/mm3 (3.60-5.2); RDW 14.1 % (11.6-15.6); WHITE BLOOD COUNT 12.2 K/mm3 (4.0-10.0)
[2024-02-09 11:10] LABS: ANISOCYTOSIS 1+; MACROCYTOSIS 0
[2024-02-09 11:19] LABS: POTASSIUM 4.2 mmol/L (3.5-5.1)
[2024-02-09 11:25] LABS: CALCIUM 8.5 mg/dL (8.5-10.1)
[2024-02-09 11:26] LABS: BLOOD UREA NITROGEN 37.4 mg/dL (7-18)
[2024-02-09 11:28] LABS: CREATININE 1.4 mg/dL (0.55-1.3)
[2024-02-09 11:29] LABS: BILIRUBIN,TOTAL 0.4 mg/dL (0.2-1); TOT PROT 5.9 g/dl (6.4-8.2)
[2024-02-09] MEDS: FUROSEMIDE 40 MG/4 ML INJECTABLE VIAL IVPUSH ONE (20:05)
[2024-02-09] MEDS: guaiFENesin 600 MG TABLET.ER (FP) PO SCH (21:27)
[2024-02-10 09:32] LABS: BASO % 1.1 % (0-2.0); EOS % 2.7 % (0-4.5); HEMATOCRIT 26.4 % (32.4-45.2); HEMOGLOBIN 8.8 GM/dL (10.7-15.3); MCH 29.5 pg (25.7-33.7); MCHC 33.3 g/dl (32.0-36.0); MEAN CELL VOLUME 88.6 fl (80-96); MEAN PLT VOLUME 8.3 fl (7.5-11.1); MONO % 10.8 % (3.8-10.2); NEUT % 67.4 % (42.8-82.8); PLATELET COUNT 465 10^3/uL (134-434); RBC 2.98 M/mm3 (3.60-5.2); WHITE BLOOD COUNT 12.4 K/mm3 (4.0-10.0)
[2024-02-10 09:38] LABS: INR 1.06 (0.83-1.09)
[2024-02-10 09:56] LABS: ANISOCYTOSIS 1+; MACROCYTOSIS 0
[2024-02-10 10:02] LABS: ALBUMIN 2.1 g/dl (3.4-5.0); CALCIUM 8.3 mg/dL (8.5-10.1)
[2024-02-10 10:06] LABS: CREATININE 1.2 mg/dL (0.55-1.3)
[2024-02-10 10:07] LABS: BILIRUBIN,TOTAL 0.4 mg/dL (0.2-1); TOT PROT 5.9 g/dl (6.4-8.2)
[2024-02-10] MEDS: FUROSEMIDE 40 MG/4 ML INJECTABLE VIAL IVPUSH ONE (12:46)
[2024-02-10] MEDS: PIPERACILLIN/TAZOB 2.25 GM 2.25 GM/50 ML BAG IVPB SCH (14:35)
[2024-02-10] MEDS: ENOXAPARIN NA (PORCINE) 80 MG/0.8 ML DISP.SYRIN SQ SCH (21:29)
[2024-02-10] MEDS: CYCLOBENZAPRINE HCL 5 MG TABLET PO PRN (21:29)
[2024-02-11 12:59] LABS: POTASSIUM 4.2 mmol/L (3.5-5.1)
[2024-02-11 13:00] LABS: CALCIUM 8.8 mg/dL (8.5-10.1)
[2024-02-11 13:01] LABS: BLOOD UREA NITROGEN 29.9 mg/dL (7-18)
[2024-02-11 13:04] LABS: CREATININE 1.3 mg/dL (0.55-1.3)
[2024-02-11] MEDS: FUROSEMIDE 40 MG/4 ML INJECTABLE VIAL IVPUSH ONE (20:56)
[2024-02-12] MEDS: FUROSEMIDE 40 MG/4 ML INJECTABLE VIAL IVPUSH SCH (10:10)
[2024-02-12 11:31] LABS: HEMATOCRIT 27.8 % (32.4-45.2); HEMOGLOBIN 9.1 GM/dL (10.7-15.3); MCH 29.1 pg (25.7-33.7); MCHC 32.7 g/dl (32.0-36.0); MEAN CELL VOLUME 88.9 fl (80-96); MEAN PLT VOLUME 8.7 fl (7.5-11.1); PLATELET COUNT 532 10^3/uL (134-434); RBC 3.12 M/mm3 (3.60-5.2); WHITE BLOOD COUNT 13.9 K/mm3 (4.0-10.0)
[2024-02-12 11:40] LABS: POTASSIUM 4.2 mmol/L (3.5-5.1)
[2024-02-12 11:44] LABS: ALBUMIN 2.3 g/dl (3.4-5.0); CALCIUM 8.4 mg/dL (8.5-10.1)
[2024-02-12 11:45] LABS: BLOOD UREA NITROGEN 28.9 mg/dL (7-18)
[2024-02-12 11:48] LABS: CREATININE 1.2 mg/dL (0.55-1.3)
[2024-02-12 11:49] LABS: BILIRUBIN,TOTAL 0.4 mg/dL (0.2-1); TOT PROT 6.5 g/dl (6.4-8.2)
[2024-02-12 13:07] LABS: ANISOCYTOSIS 0; MACROCYTOSIS 0
[2024-02-12] MEDS: ACETAMINOPHEN 1000 MG/100 ML BAG IVPB PRN (21:15)
[2024-02-12] MEDS: clonazePAM 0.5 MG TABLET PO PRN (21:16)
[2024-02-13 10:27] LABS: BASO % 1.2 % (0-2.0); EOS % 3.2 % (0-4.5); HEMATOCRIT 28.5 % (32.4-45.2); HEMOGLOBIN 9.3 GM/dL (10.7-15.3); LYMPH % 17.9 % (8-40); MCH 29.4 pg (25.7-33.7); MCHC 32.7 g/dl (32.0-36.0); MEAN CELL VOLUME 89.9 fl (80-96); MEAN PLT VOLUME 8.8 fl (7.5-11.1); MONO % 10.2 % (3.8-10.2); NEUT % 67.5 % (42.8-82.8); PLATELET COUNT 535 10^3/uL (134-434); RBC 3.17 M/mm3 (3.60-5.2); RDW 13.9 % (11.6-15.6); WHITE BLOOD COUNT 11.5 K/mm3 (4.0-10.0)
[2024-02-13 11:05] LABS: POTASSIUM 4.1 mmol/L (3.5-5.1)
[2024-02-13 11:09] LABS: CALCIUM 9.2 mg/dL (8.5-10.1)
[2024-02-13 11:10] LABS: ALBUMIN 2.5 g/dl (3.4-5.0); BLOOD UREA NITROGEN 33.7 mg/dL (7-18)
[2024-02-13 11:13] LABS: CREATININE 1.2 mg/dL (0.55-1.3)
[2024-02-13 11:14] LABS: BILIRUBIN,TOTAL 0.4 mg/dL (0.2-1)
[2024-02-13 11:15] LABS: TOT PROT 6.6 g/dl (6.4-8.2)
[2024-02-13 23:20] VITALS: BMI 35.7
[2024-02-14 09:48] LABS: POTASSIUM 3.9 mmol/L (3.5-5.1)
[2024-02-14 09:51] LABS: ALBUMIN 2.4 g/dl (3.4-5.0); BLOOD UREA NITROGEN 33.8 mg/dL (7-18); CALCIUM 8.8 mg/dL (8.5-10.1); MAGNESIUM 1.6 mg/dL (1.8-2.4)
[2024-02-14 09:55] LABS: CREATININE 1.1 mg/dL (0.55-1.3)
[2024-02-14 09:56] LABS: BILIRUBIN,TOTAL 0.4 mg/dL (0.2-1); TOT PROT 6.7 g/dl (6.4-8.2)
[2024-02-15 17:17] LABS: HIV INTERPRETATION NEGATIVE (NEGATIVE)
[2024-02-16 00:03] VITALS: BP 154/76; PULSE 88; RESP 20; TEMP 98.1
[2024-02-16 22:10] LABS: FIBROSIS SCORE. 0.49 (0.00-0.21); HCV ALPHA 2 MACRO CHART 290 mg/dL (110-276); NECRO.INFLAM ACT.SCORE 0.21 (0.00-0.17); NECROINFLAM. ACTIVITY GRADE A0-A1 (.)
== END 2024-02-15 23:00 | disposition short-term general hospital (02) | DRG 438 ==
LOC: JER 15:12 → JERBED 21:37 → J6W 23:13 → JICU 02-01 22:37 → J6S 02-03 23:14
PROVIDERS: ADMIT Internal Medicine; ATTEND Internal Medicine
PROC: 0F943ZZ Drainage of Gallbladder, Percutaneous Approach (ICD-10-PCS; principal; 2024-02-02)
DX: K85.10 Biliary acute pancreatitis without necrosis or infection (principal); A41.9 Sepsis, unspecified organism; I35.0 Nonrheumatic aortic (valve) stenosis; J96.01 Acute respiratory failure with hypoxia; I50.33 Acute on chronic diastolic (congestive) heart failure; J81.0 Acute pulmonary edema; N17.9 Acute kidney failure, unspecified; E87.20 Acidosis, unspecified; K81.0 Acute cholecystitis; N13.30 Unspecified hydronephrosis; R79.89 Other specified abnormal findings of blood chemistry; D64.9 Anemia, unspecified; D75.839 Thrombocytosis, unspecified; I11.0 Hypertensive heart disease with heart failure; E80.6 Other disorders of bilirubin metabolism; M54.50 Low back pain, unspecified; D72.829 Elevated white blood cell count, unspecified; F32.A Depression, unspecified; E11.9 Type 2 diabetes mellitus without complications; Z95.0 Presence of cardiac pacemaker; Z85.51 Personal history of malignant neoplasm of bladder; E66.9 Obesity, unspecified; Z68.32 Body mass index [BMI] 32.0-32.9, adult
CPT/HCPCS: 0241U-QW; 36415; 36430; 47490; 71045-TC-FY; 71250-TC; 74176-TC; 74177-TC; 76705-TC; 76775-TC; 80048; 80053; 81003; 82172; 82436; 82570; 82962; 82977; 83010; 83036; 83605; 83690; 83735; 83883; 83930; 84100; 84133; 84156; 84300; 84460; 84484; 85025; 85027; 85610; 85730; 86140; 86705; 86707; 86850; 86900; 86901; 87040; 87070; 87075; 87076; 87086; 87102; 87186; 87205; 87210; 87340; 87350; 87389; 87517; 93005; 93010; 93306-TC; 94640; 97116-GP; 97162-GP; 99285-25; J0131; J1644; P9017; Q9967